=== PATIENT | female | born 1990 | race Caucasian/White ===

== ENCOUNTER 2022-05-02 13:44 | Outpatient (CLI) | payer OTHER, SELFPAY ==
--- NOTE | 2022-05-02 14:00 | CRLHL7_ITS ---
For Patients: As a result of the Century Cures Act, medical imaging exams and procedure reports are released immediately into your electronic medical record. You may view this report before your referring provider. If you have questions, please contact your health care provider. CLINICAL HISTORY: FOLLOW UP RIGHT OVARIAN COMPLEX CYST Comparison: 03/23/2022 TECHNIQUE: 2D avalos scale and color Doppler images were acquired of the pelvis using a transvaginal approach. FINDINGS: On transvaginal imaging, the myometrium has a heterogeneous echotexture. The uterus measures 8.2 x 4.0 x 4.3 cm. The endometrial lining appears normal and measures 6 mm in thickness. The left ovary measures 3.6 x 1.8 x 1.5 cm in size and the right ovary measures 3.2 x 1.6 x 2.1 cm. The ovaries demonstrate normal arterial and venous blood flow on color Doppler analysis. There are no suspicious fluid collections within the cul-de-sac. Interval resolution of previously noted right ovarian cyst. IMPRESSION: Resolution of previously noted right ovarian cyst. Dictated by Ken Rojo MD @ 05/02/2022 2:44:26 PM (Electronically Signed)
== END 2022-05-02 13:45 | disposition home or self-care (01) ==
LOC: US 13:45
PROVIDERS: PCP Physician Assistant; Visit Provider Physician Assistant
DX: N83.201 Unspecified ovarian cyst, right side (principal)
CPT/HCPCS: 76830

== ENCOUNTER 2023-08-02 09:46 | Emergency (ER) | payer OTHER, SELFPAY ==
[2023-08-02 09:56] VITALS: BP 119/71; PULSE 64; RESP 18; TEMP 36.4; O2SAT 98; BMI 24.6
--- NOTE | 2023-08-02 11:19 | ED_ITS ---
HPI - Head Injury General Chief complaint: Head Injury/Pain Stated complaint: Hit head yesterday, nauseous, dizzy Time Seen by Provider: 08/02/23 09:58 History of Present Illness HPI Narrative: This 33-year-old female comes in reporting head injury that occurred yesterday. She was caring a Tote box and somehow bumped her head on the right side of her head. She states that she did not have loss of consciousness but was very briefly dazed. Since then she has had some nausea but did not vomit. She does not report any neurologic deficits. She does have a headache but it is not severe. She does note that light seems to bother her eyes. She did go to work this morning and was able to function but comes in today because she called the clinic and was told to come here for evaluation. Related Data Home Medications Medication Instructions Recorded Confirmed albuterol sulfate 90 mcg/actuation 2 puff inhalation Q4-6H PRN 06/14/22 aerosol inhaler (Ventolin HFA) levothyroxine 75 mcg tablet 75 mcg PO QDAY 06/14/22 Previous Rx's Medication Instructions Recorded citalopram 40 mg tablet 40 mg PO QDAY #90 tabs 06/02/22 etonogestrel 0.12 mg-ethinyl 1 vag ring vaginal Q4W #3 ea 06/08/22 estradiol 0.015 mg/24 hr vaginal ring (EluRyng) levothyroxine 75 mcg tablet 75 mcg PO QDAY #90 tabs 06/14/22 citalopram 40 mg tablet 40 mg PO DAILY #30 tabs 08/02/23 ketorolac 10 mg tablet 10 mg PO Q8H 5 days #15 tabs 08/02/23 ondansetron 4 mg disintegrating 4 mg PO Q6H #10 tabs 08/02/23 tablet Allergies Allergy/AdvReac Type Severity Reaction Status Date / Time avocado Allergy Verified 08/02/23 09:55 banana AdvReac Intermediate Verified 06/14/22 10:26 Egg Derived AdvReac Mild Verified 06/14/22 10:26 raspberry AdvReac Mild Verified 06/14/22 10:26 Review of Systems Status of ROS: Reports: 10 or more systems reviewed and unremarkable except as noted in History and below Narrative: Constitutional: No fevers, no weight gain or loss. Eyes: No discharge. No vision changes. HENT: No congestion, no sore throat, no ear pain. Cardiovascular: No chest pain, no palpitations. Respiratory: No shortness of breath, no wheezes, no cough. Gastrointestinal: No abdominal pain, no vomiting, no diarrhea. She has had some nausea. Genitourinary: No dysuria, no hematuria. Musculoskeletal: Normal range of motion. Skin: No rashes, no pruritis. Neurological: No dizziness, weakness, sensory change, speech change. Endo/Heme/Allergies: No bruising or bleeding. No polydipsia. Pysch: no suicidality, no anxiety, no insomnia. All other systems reviewed and are negative. [facility] Surgical History (Updated 06/14/22 @ 10:28 by Natalie Fowler) Hx of tubal ligation ?Z98.51 - Tubal ligation status (ICD-10) Hx of section ?Z98.891 - History of uterine scar from previous surgery (ICD-10) Social History Smoking Status: Current some day smoker Do you use any of these nicotine containing products: E-Cigarettes Second hand tobacco smoke exposure: No How often do you have a drink containing alcohol: 2-4 times a month How many standard drinks containing alcohol do you have on a typical day: 1 or 2 How often do you have six or more drinks on one occasion: Never AUDIT-C Alcohol total score: 2 Non-prescribed substance use: marijuana (any form) service: No Exam Narrative: Exam Narrative: Constitutional: Well-developed, well-nourished, no acute distress. HEENT: Normocephalic, atraumatic. No sign of scalp injury or hematoma. Neck: Normal range of motion. Nontender. Supple. Heart: Regular. No murmurs. Normal rate. Intact distal pulses. Lungs: Clear to auscultation. No chest discomfort. No wheezes, rhonchi, or rales. Abdomen: Normal bowel sounds. Nontender. No rebound tenderness. Genitalia: Deferred. Back: No midline tenderness. Normal range of motion. Extremities: Normal range of motion. No injury. Skin: Intact. No rash. Warm. No erythema or pallor. Neurologic: No altered sensation. No weakness. Alert and oriented. Psychiatric: No suicidality. No anxiety or depression. No insomnia. Nursing notes and vitals signs are reviewed. Const: Vital Signs, click to edit/add: Vital Signs - 24 hr 08/02/23 09:56 Temperature 97.6 F Pulse Rate [Pulse Oximeter] 64 Respiratory Rate 18 Blood Pressure [Le ft Upper Arm] 119/71 Pulse Oximetry 98 Oxygen Delivery Me thod Room Air Course Vital Signs Vital signs: Initial Vital Signs Temperature 97.6 F 08/02/23 09:56 Temperature Source Temporal Artery Scan 08/02/23 09:56 Pulse Rate 64 08/02/23 09:56 Pulse Rhythm Regular 08/02/23 09:56 Respiratory Rate 18 08/02/23 09:56 Blood Pressure 119/71 08/02/23 09:56 Blood Pressure Mean 87 08/02/23 09:56 Blood Pressure Position Supine 08/02/23 09:56 Pulse Oximetry 98 08/02/23 09:56 Oxygen Delivery Method Room Air 08/02/23 09:56 Vital Signs Temperature 97.6 F 08/02/23 09:56 Pulse Rate 64 08/02/23 09:56 Respiratory Rate 18 08/02/23 09:56 Blood Pressure 119/71 08/02/23 09:56 Pulse Oximetry 98 08/02/23 09:56 Oxygen Delivery Method Room Air 08/02/23 09:56 Temperature 97.6 F 08/02/23 09:56 Pulse Rate 64 08/02/23 09:56 Respiratory Rate 18 08/02/23 09:56 Blood Pressure 119/71 08/02/23 09:56 Pulse Oximetry 98 08/02/23 09:56 Oxygen Delivery Method Room Air 08/02/23 09:56 MDM - Head Injury MDM Narrative Medical decision making narrative: This patient bumped her head yesterday and was dazed briefly but did not have loss of consciousness. She is displaying signs and symptoms that are more typical of a concussion however. I did review nexus rules and discuss the role of CT imaging which the patient declined in a process of shared decision making. I discussed matters related to concussion injury and recommendations for return to activity. The patient did receive a return to work note and prescriptions for Zofran and Toradol. Discharge Plan Discharge Clinical Impression: Concussion without loss of consciousness Patient Disposition: Home, Self-Care Condition: Stable Additional Instructions: Take medication as needed and directed. Increase activity as tolerated. Follow up with MD return if worsening. Prescriptions: New ketorolac 10 mg tablet 10 mg PO Q8H 5 Days Qty: 15 0RF ondansetron 4 mg tablet,disintegrating 4 mg PO Q6H Qty: 10 0RF citalopram 40 mg tablet 40 mg PO DAILY Qty: 30 2RF No Action citalopram 40 mg tablet 40 mg PO QDAY Qty: 90 0RF etonogestrel-ethinyl estradiol [EluRyng] 0.12-0.015 mg/24 hr ring 1 vag ring vaginal Q4W Qty: 3 3RF Rx Instructions: leave in place for 3 weeks of a 4-week cycle levothyroxine 75 mcg tablet 75 mcg PO QDAY albuterol sulfate [Ventolin HFA] 90 mcg/actuation HFA aerosol inhaler 2 puff inhalation Q4-6H PRN levothyroxine 75 mcg tablet 75 mcg PO QDAY Qty: 90 3RF Follow Up/Referrals: Rosa Kearns PA-C [Primary Care Provider] - Stand Alone Forms: [facility] Info Instructions
== END 2023-08-02 11:33 | disposition home or self-care (01) ==
PROVIDERS: Emergency Provider Emergency Medicine Emergency Medical Services; PCP Physician Assistant
DX: S06.0X0A Concussion without loss of consciousness, initial encounter (principal); W22.8XXA Striking against or struck by other objects, initial encounter
CPT/HCPCS: 99284

== ENCOUNTER 2023-12-24 10:21 | Outpatient (CLI) | payer OTHER, SELFPAY ==
--- NOTE | 2023-12-24 10:45 | US_ITS ---
Patient: YARELI MANDEL Facility:?[facility] Patient ID:?[id number] Site Patient ID:?[id number] Site :?1992 Study:?US-Pelvis TRANSABDOMINAL AND TRANSVAGINAL-12/24/2023 1:58:41 PM Ordering Physician:?LOIDA RUST Final Report: INDICATION: Dyspareunia, endometriosis. Pelvic pain. TECHNIQUE: Transabdominal and transvaginal ultrasound examination of the pelvis was performed. Grayscale and color Doppler images were obtained. COMPARISON: Transvaginal pelvic ultrasound 05/02/2022. FINDINGS: Uterus: Measures 8.3 x 4.0 x 4.8 cm. Normal in echotexture. No suspicious masses. section scar along the lower anterior uterine body. Endometrium: 3 mm. No significant endometrial free fluid. Right Ovary: Measures 3.5 x 2.1 x 2.8 cm. No suspicious masses. Normal arterial and venous flow on color Doppler imaging. Left ovary: Measures 3.9 x 2.3 x 2.0 cm. No suspicious masses. Normal arterial and venous flow on color Doppler imaging. Cul-de-sac: No free fluid. Other: There are prominent paraadnexal/paraovarian vasculature bilaterally. IMPRESSION: Findings raise the possibility of pelvic congestion syndrome. This could be confirmed with a time-resolved MRA/MRV of the pelvis. Follow-up consultation with interventional radiology is advised. Dictated by Tyrell Yoder MD @ 01/03/2024 2:25:23 PM Signed by:?Tyrell Yoder MD @01/03/2024 2:25:23 PM (Electronic Signature)
== END 2023-12-24 10:22 | disposition home or self-care (01) ==
PROVIDERS: Visit Provider Obstetrics & Gynecology
DX: N94.6 Dysmenorrhea, unspecified (principal); R10.2 Pelvic and perineal pain
CPT/HCPCS: 76830; 76856

== ENCOUNTER 2024-01-02 15:03 | Outpatient (CLI) | payer OTHER, SELFPAY | END 2024-01-02 15:04 | disposition home or self-care (01) | LOC: NFLDREF 01-07 09:17 | PROVIDERS: Visit Provider Nurse Practitioner Family | DX: R30.0 Dysuria (principal) | CPT/HCPCS: 87086 ==

== ENCOUNTER 2024-01-18 14:27 | Outpatient (CLI) | payer OTHER, SELFPAY ==
--- NOTE | 2024-01-18 14:30 | MR_ITS ---
Patient: YARELI MANDEL Facility:?[facility] Patient ID:?[id number] Site Patient ID:?[id number]. Site :?[id number] Study:?MRI-Pelvis W/ and W/O Cont 20 CC DOATERM-01/18/2024 4:48:42 PM Ordering Physician:?LOIDA RUST Final Report: INDICATION: Pelvic pain. Prominent periuterine vessels. TECHNIQUE: Pelvic MRI with T1 in- and out of phase, T2, and postcontrast images. Intravenous gadolinium administered. Comparison : Pelvic ultrasound dated 24 December 2023. Findings : Probable scar in the anterior aspect of the lower uterine segment. The uterus is otherwise unremarkable. Normal appearance of the ovaries which contain scattered follicles. No pelvic masses. No adenopathy. Mildly prominent periuterine vessels. No other bony or soft tissue abnormalities identified. Impression : 1. Mildly prominent periuterine vessels are a nonspecific finding. 2. No pelvic masses or adenopathy. Dictated by Sandro Parsons MD @ 01/20/2024 11:17:51 AM Signed by:?Sandro Parsons MD @01/20/2024 11:17:51 AM (Electronic Signature)
--- OUTSIDE RECORDS SUMMARY | 2024-01-18 14:30 | XMS_ITS | Encounter Summary ---
Author Name Unknown Organization [facility] Address [address] [place] [address] Phone [email or web address] Care Team Providers Care Estimating Engineer Name Role Phone NormanoliverJanuary Primary Care Provider [phone] Reason for Visit * Reason Comments Urinary Issue Female / Vaginal Issue Encounter Details Date Type Department Care Team (Late st Contact Info) Description 12/29/2023 11:45 AM CDT Telemedicine Virtual [facility] ([facility]) [address] [place] [address] Elayne Carnes MD [address] [address] Dysuria (Primary Dx); Vaginal pruritus Social History Tobacco Use Types Packs/Day Years Used Date Smoking Tobacco: Every Day E-Cigarettes Alcohol Use Standard Drinks/Week Comments Not Currently 0 (1 standard drink = 0.6 oz pur e alcohol) Alcohol Use Answer Date Recorded Alcohol Use Status Not Currently 11/10/2023 Sex and Gender Information Value Date Recorded Sex Assigned at Female 11/10/2023 3:12 AM SENIOR COMPLIANCE ANALYST Gender Identity Female 11/10/2023 3:12 AM SENIOR COMPLIANCE ANALYST Sexual Orientation Not on file documented as of this encounter Patient Instructions * Patient Instructions* Elayne Carnes MD - 12/29/2023 11:45 AM CDT Images from the original note were not included. I hope you feel better soon! Please do not take the antibiotic unless you have positive results for nitrites on an over the counter urine test (not just leukocytes). These tests are found in the pharmacy aisle... one company is [employer], but please follow package instructions. Here is an example of the insert for the Azo test strips (the one you purchase may be different): IF you do start the antibiotic, ensure you take all days of antibiotics, even if better in 2-3 daysto minimize risk of resistant bacteria in your own body. Consider starting a probiotic or eating yogurt, and/or using over the counter vaginal monistat, if you are prone to vaginal yeast infections when on Antibiotics. Ensure condom use as backup while on antibiotics, if sexually active w/men as antibiotics can decrease efficacy of oral contraceptives. Please try to be seen in person otherwise for a full urine evaluation and genital exam. Would stop VAgisil, may use Monistat for yeast, or Vaseline or barrier cream only on outer labia. May try Azo/Pyridium, over the counter, as well for urinary discomfort, but note it will change your urine to orange, do not take within 8 hours prior to a urine check/test. Please Call 911 or Go to the ER :If having fever w/abdominal pain pavithra w/vomiting, or green or bloody vomit, bloody stools or urine, or if cannot urinate in 8 hours, if having shortness of breath, chest pain, acute weakness or loss of strength or sensation and numbness, acute loss of vision, severe h eadache or other severe symptoms. documented in this encounter Progress Notes * Elayne Carnes MD - 12/29/2023 11:45 AM CDT Virtual Primary Care Note Member states they are currently in the [facility] Member states they are an employee of [employer] without access to a [facility]. Proximate Lab Location: [facility] Is the member interested in learning about Virtual Primary Care? No Subjective: Raza Tirado is a 33 y.o. female requesting a virtual encounter. Chief Complaint: Chief Complaint Patient presents with Urinary Issue Female / Vaginal Issue History Reviewed: The following portions of the member's chart were reviewed during this encounter and updated as appropriate: Allergies Meds Problems Raza Tirado is a 33 y.o. female presents for a phone visit for burning when urinates and vaginal itching as well and redness. She reports started 2-3 days ago. Tried to use Azo and helped slightly but not fully. Tried Vagisil evening. Helped the itching but burned when applying. Itching and redness started and burning w/urination started Sunday. No F/C/N/V. No vaginal discharge. Menses are slightly irregular, notes just started control 10 days ago. Plans to use q3 mo continuously . Previously on Nuvaring but tilted uterus so had trouble in the past. No condom use in the interim (reports baseline dyspareunia so not sexually active w/regular partner, ) No recent antibiotics/steroids. No urinary frequency or urgency now, but 2 days ago had this. Female Problem The patient's primary symptoms include genital itching and a genital rash. The patient's pertinent negatives include no genital lesions, genital odor, missed menses, pelvic pain, vaginal bleeding or vaginal discharge. This is a new problem. The current episode started in the past 7 days. The problem occurs intermittently. The problem has been gradually worsening. The pain is moderate. The problemaffects both sides. She is not . Associated symptoms include frequency, headaches, painful intercourse and urgency. Pertinent negatives include no abdominal pain, anorexia, back pain, chills,constipation, diarrhea, discolored urine, dysuria, fever, flank pain, hematuria, joint pain, joint s welling, nausea, rash, sore throat or vomiting. The symptoms are aggravated by activity. She is sexually active. No, her partner does not have an STD. She uses oral contraceptives for contraception. Her menstrual history has been irregular. Urinary Issue Associated symptoms include frequency and urgency. Pertinent negatives include no chills, flank pain, hematuria, nausea or vomiting. Female / Vaginal Issue The patient's primary symptoms include genital itching and a genital rash. The patient's pertinent negatives include no genital lesions, genital odor, missed menses, pelvic pain, vaginal bleeding or vaginal discharge. Associated symptoms include frequency, headaches, painful intercourse and urgency. Pertinent negatives include no abdominal pain, anorexia, back pain, chills, constipation, diarrhea, discolored urine, dysuria, fever, flank pain, hematuria, joint pain, joint swelling, nausea, rash,sore throat or vomiting. Review of Systems Constitutional: Negative for chills, diaphoresis, fatigue and fever. HENT: Negative for sore throat. Gastrointestinal: Negative for abdominal pain, anorexia, constipation, diarrhea, nausea and vomiting. Musculoskeletal: Negative for back pain, joint pain, myalgias, neck pain and neck stiffness. Skin: Negative for rash. Neurological: Positive for headaches. Genitourinary: Positive for dyspareunia, frequency, menstrual problem and urgency. Negative for dysuria, flank pain, hematuria, missed menses, pelvic pain, vaginal bleeding, vaginal discharge and vaginal pain. Objective: With the provider's guidance during this telephonic visit, the member's self- examination (includingany reported vital signs) revealed the following: Visit Vitals Smoking Status Every Day Physical Exam Constitutional: General: She is not in acute distress. Pulmonary: Effort: Pulmonary effort is normal. No respiratory distress. Breath sounds: No stridor. Comments: Normal phonation; no audible distress. Neurological: Mental Status: She is alert and oriented to person, place, and time. Cranial Nerves: No dysarthria. Psychiatric: Mood and Affect: Mood normal. Behavior: Behavior normal. Behavior is cooperative. Thought Content: Thought content normal. Judgment: Judgment normal. Assessment/Plan: Diagnoses and all orders for this visit: Dysuria Comments: Dysuria starting after vaginal itching and vagisil use;frequency/urgency resolved w/Azo. OTC UA test.WAit/see abx. f/u in person if worse Orders: - nitrofurantoin, macrocrystal-monohydrate, (Macrobid) 100 MG capsule; Take 1 capsule (100 mg total) by mouth in the morning and 1 capsule (100 mg total) in the evening. Do all this for 5 days. Vaginal pruritus Comments: To stop Vagisil,may try vaseline/barrier cream and/or Monistat. F/u in person for exam if continues. ER & return precautions reviewed at length and reviewed after visit summary access and advised to review after our visit. Time Spent With Patient: 15 min evaluation, counseling, education, documentation, and coordination of care. Elayne Carnes MD documented in this encounter Plan of Treatment Not on file documented as of this encounter Visit Diagnoses Diagnosis Dysuria- Primary Vaginal pruritus Pruritus of genital organs documented in this encounter Care Teams Estimating Engineer Relationship Specialty Start Date End Date NormanJanuary [address] [place] [address] PCP - General Family Medicine 11/29/23 documented as of this encounter
--- OUTSIDE RECORDS SUMMARY | 2024-01-18 14:30 | XMS_ITS | Clinical Summary ---
Author Name Unknown Organization [facility] Address [address] [place] [id number] Care Team Providers Care Management Lead Name Role Phone [facility], [facility] Primary Care Provide r Allergies No known active allergies Medications Medication Sig Dispensed Refills Start Date End Date Status NASONEX 50 MCG/ACT NA SUSP INHALE 2 SPRAYS IN EACH NOSTRIL ONE DAILY 3 MONTHS 3 03/20/2009 Active RECLIPSEN 0.15-30 MG-MCG OR TABS 1 TABLET DAILY 28 0 03/20/2009 Active PROAIR HFA 108 (90 BASE) MCG/ACT IN AERS INHALE 1 TO 2 PUFFS EVERY 4 TO 6 HOURS NEEDED 1 1 03/20/2009 Active oxyCODONE IR (ROXICODONE) 5 MG tablet Take 1-2 tablets (5-10 mg) by mouth every 6 hours as needed for moderate to severe pain 12 tablet 0 01/18/2018 Active Social History Tobacco Use Types Packs/Day Years Used Date Smoking Tobacco: Never Assessed Sex and Gender Information Value Date Recorded Sex Assigned at Not on file Gender Identity Not on file Sexual Orientation Not on file Last Filed Vital Signs Vital Sign Reading Time Taken Comments Blood Pressure 102/60 01/18/2018 1:00 PM CDT Pulse 66 01/18/2018 9:26 AM CDT Temperature 36.2 ??C (97.1 ??F) 01/18/2018 9:26 AM CD T Respiratory Rate 18 01/18/2018 9:26 AM CDT Oxygen Saturation 99% 01/18/2018 1:00 PM CDT Inhaled Oxygen Concentration - - Weight 61.2 kg (135 lb) 01/18/2018 9:26 AM CDT Height 154.9 cm (5' 1) 01/18/2018 9:26 AM CDT Body Mass Index 25.51 01/18/2018 9:26 AM CDT Plan of Treatment Not on file Care Teams Management Lead Relationship Specialty Start Date End Date [facility], [facility] [address] [place] [address] JANELLE Horton [id number] PCP - General 03/14/23
--- OUTSIDE RECORDS SUMMARY | 2024-01-18 14:30 | XMS_ITS | Referral Summary ---
Author Name Unknown Organization [facility] Address [address] [place] [id number] Care Team Providers Care Benefits Administrator Name Role Phone Clinic, [facility] Primary [...] of Treatment Not on file Care Teams Benefits Administrator Relationship Specialty Start Date End Date Clinic, [facility] [address] [place] [address] JANELLE Horton [id number] PCP - General 03/14/23
--- OUTSIDE RECORDS SUMMARY | 2024-01-18 14:30 | XMS_ITS | Encounter Summary ---
Author Name Unknown Organization [facility] Address [address] [place] [address] Phone [email or web address] Care Team Providers Care Money Laundering Investigator Name Role Phone Unavailable Primary Care Provider Unavailabl e Reason for Visit * Reason Comments GI Issue Vomiting stopped now diarrhea Encounter Details Date Type Department Care Team (Late st Contact Info) Description 11/10/2023 3:30 AM FRAME TABLE OPERATOR HELPER Telemedicine [facility] ([facility]) [address] [place] [address] Ismael Herrmann MD [address] [address] Gastroenteritis (Primary Dx) Social History Tobacco Use Types Packs/Day Years Used Date Smoking Tobacco: Every Day E-Cigarettes Tobacco Cessation:Ready to Q uit: Not Asked; Counseling Given: Not Answered Alcohol Use Standard Drinks/Week Comments Not Currently 0 (1 standard drink = 0.6 oz pur e alcohol) Alcohol Use Answer Date Recorded Alcohol Use Status Not Currently 11/10/2023 Sex and Gender Information Value Date Recorded Sex Assigned at Female 11/10/2023 3:12 AM FRAME TABLE OPERATOR HELPER Gender Identity Female 11/10/2023 3:12 AM FRAME TABLE OPERATOR HELPER Sexual Orientation Not on file documented as of this encounter Last Filed Vital Signs Vital Sign Reading Time Taken Comments Blood Pressure - - Pulse - - Temperature - - Respiratory Rate - - Oxygen Saturation - - Inhaled Oxygen Concentration - - Weight 56.7 kg (125 lb) 11/10/2023 4:30 AM FRAME TABLE OPERATOR HELPER Height 154.9 cm (5' 1) 11/10/2023 4:30 AM FRAME TABLE OPERATOR HELPER Body Mass Index 23.62 11/10/2023 4:30 AM FRAME TABLE OPERATOR HELPER documented in this encounter Patient Instructions * Patient Instructions* Ismael Herrmann MD - 11/10/2023 3:30 AM FRAME TABLE OPERATOR HELPER Push fluids, slowly add food including soup broth, crackers, pedialyte, follow up with pcp in next week. E TABLE OPERATOR HELPER * Attachments The following attachments cannot be sent through Care Everywhere. * Diarrhea (Malian) documented in this encounter Progress Notes * Ismael Herrmann MD - 11/10/2023 3:30 AM CST Virtual Primary Care Note Member states they are currently in the [facility] Member states they are an employee of [employer] without access to a [facility] [place]. Proximate Lab Location: Refer to local provider Is the member interested in learning about Virtual Primary Care? No Subjective: Raza Tirado is a 33 y.o. female requesting a virtual encounter. Chief Complaint: Chief Complaint Patient presents with GI Issue Vomiting stopped now diarrhea History Reviewed: The following portions of the member's chart were reviewed during this encounter and updated as appropriate: Allergies Meds Member starting last Sunday am woke up at 2 am vomiting x 2 days, was feeling better on Sunday and then Sunday woke up again vomiting again for 3-4 days was doing better with some nausea and woke up with diarrhea on director of automation, loose now mostly watery, going approx 15 x a day. No recent travel, was exposed with someone who had similar but did not last this long. No fever or chills.Feels weak, has been taking immodium which seems to help only slightly. Has mostly had gingerale, water and tea. Has not waking her up in middle of night to go. Going less now than a couple days prior. Has not noticed any blood. REASON FOR VISIT - OTHER Associated symptoms include fatigue. Pertinent negatives include no abdominal pain, chills, fever, headaches, nausea or vomiting. Review of Systems Constitutional: Positive for fatigue. Negative for chills and fever. Gastrointestinal: Positive for diarrhea. Negative for abdominal distention, abdominal pain, blood in stool, melena, nausea and vomiting. Neurological: Negative for headaches. Objective: With the provider's guidance during this telephonic visit, the member's self- examination (includingany reported vital signs) revealed the following: Visit Vitals Ht 5' 1 Wt 125 lb BMI 23.62 kg/m?? Smoking Status Every Day BSA 1.56 m?? Physical Exam Constitutional: Appearance: Normal appearance. She is normal weight. Cardiovascular: Rate and Rhythm: Normal rate. Pulmonary: Effort: Pulmonary effort is normal. Abdominal: General: Abdomen is flat. There is no distension. Palpations: Abdomen is soft. Tenderness: There is no abdominal tenderness. Neurological: General: No focal deficit present. Mental Status: She is alert and oriented to person, place, and time. Mental status is at baseline. Psychiatric: Mood and Affect: Mood normal. Behavior: Behavior normal. Thought Content: Thought content normal. Judgment: Judgment normal. Assessment/Plan: Diagnoses and all orders for this visit: Gastroenteritis Push fluids, slowly add food including soup broth, crackers, pedialyte, follow up with pcp in next week. Ismael Herrmann MD Answers submitted by the patient for this visit: Other (Submitted on 11/10/2023) Chief Complaint: REASON FOR VISIT - OTHER Please describe your symptoms.: Puked for 3-4 days, now on dsy 3 of diarrhea. Havent eaten a ton, been takinf anti-diarrheal start day two today Have you had these symptoms before?: Yes How long have you been having these symptoms?: 4-6 days Please list any medications you are currently taking for this condition.: Anti-diarrheal E TABLE OPERATOR HELPER documented in this encounter Plan of Treatment Not on file documented as of this encounter Visit Diagnoses Diagnosis Gastroenteritis- Primary Other and unspecified noninfectious gastroenteritis and colitis documented in this encounter
--- OUTSIDE RECORDS SUMMARY | 2024-01-18 14:30 | XMS_ITS | Encounter Summary ---
Author Name Unknown Organization [facility] Address [address] [place] [address] Phone [email or web address] Care Team Providers Care Director Of Customer Service Name Role Phone Unavailable Primary Care Provider Unavailabl e Encounter Details Date Type Department Care Team (Late st Contact Info) Description 11/12/2023 Telephone [facility] ([facility]) [address] [place] [address] Tessa Weaver MA [address] [place] [address] Social History Tobacco Use Types Packs/Day Years Used Date Smoking Tobacco: Every Day E-Cigarettes Alcohol Use Standard Drinks/Week Comments Not Currently 0 (1 standard drink = 0.6 oz pur e alcohol) Alcohol Use Answer Date Recorded Alcohol Use Status Not Currently 11/10/2023 Sex and Gender Information Value Date Recorded Sex Assigned at Female 11/10/2023 3:12 AM BUTTON DECORATING MACHINE OPERATOR Gender Identity Female 11/10/2023 3:12 AM BUTTON DECORATING MACHINE OPERATOR Sexual Orientation Not on file documented as of this encounter Miscellaneous Notes * Telephone Encounter - Tessa Weaver MA - 11/12/2023 3:11 PM BUTTON DECORATING MACHINE OPERATOR Pt sched appt on 11/15 for Talk about maintaining my adhd and mental health Called pt to inform it's not in scope of practice for C providers. Pt understood. She also needs a refill of citalopram that she has been taking for 14 years. Told pt to use Get [facility] Now and discuss w/provider. She understood. ON DECORATING MACHINE OPERATOR documented in this encounter Plan of Treatment Not on file documented as of this encounter Visit Diagnoses Not on filedocumented in this encounter
--- OUTSIDE RECORDS SUMMARY | 2024-01-18 14:30 | XMS_ITS | Encounter Summary ---
Author Name Unknown Organization [facility] Address [address] [place] [address] Phone [email or web address] Care Team Providers Care Medical Transcription Name Role Phone Urmila January Primary Care Provider [phone] Reason for Visit * Reason Comments GI Issue DIARRHEA Encounter Details Date Type Department Care Team (Late st Contact Info) Description 11/29/2023 12:45 PM EXHAUST EMISSIONS AUTOMOTIVE TECHNICIAN Telemedicine [facility] ([facility]) [facility] [place] [address] Doc Hampton MD Diarrhea, unspecified type (Primary Dx) Social History Tobacco Use Types Packs/Day Years Used Date Smoking Tobacco: Every Day E-Cigarettes Alcohol Use Standard Drinks/Week Comments Not Currently 0 (1 standard drink = 0.6 oz pur e alcohol) Alcohol Use Answer Date Recorded Alcohol Use Status Not Currently 11/10/2023 Sex and Gender Information Value Date Recorded Sex Assigned at Female 11/10/2023 3:12 AM EXHAUST EMISSIONS AUTOMOTIVE TECHNICIAN Gender Identity Female 11/10/2023 3:12 AM EXHAUST EMISSIONS AUTOMOTIVE TECHNICIAN Sexual Orientation Not on file documented as of this encounter Patient Instructions * Patient Instructions* Doc Hampton MD - 11/29/2023 12:45 PM EXHAUST EMISSIONS AUTOMOTIVE TECHNICIAN Diarrhea, unspecified type Rest Fluid. Avoid milk and milk products Continue with Imodium as directed on the label. Increase the fiber in your diet. Go to an urgent care or the ER if you have increased pain, fever, melenotic stool or blood in the stools. Recheck in 1-2 if no better UST EMISSIONS AUTOMOTIVE TECHNICIAN * Attachments The following attachments cannot be sent through Care Everywhere. * Diarrhea (Korean) documented in this encounter Progress Notes * Doc Hampton MD - 11/29/2023 12:45 PM CST Virtual Primary Care Note Member states they are currently in the [facility] Member states they are an employee of [employer] without access to a [facility]. [facility] Is the member interested in learning about Virtual Primary Care? No Subjective: Raza Tirado is a 33 y.o. female requesting a virtual encounter. Chief Complaint: Chief Complaint Patient presents with GI Issue DIARRHEA History Reviewed: The following portions of the member's chart were reviewed during this encounter and updated as appropriate: Allergies Meds Problems Identity and location verified. She c/o diarrhea. This is the third episode in the last several month She started imodium AD. It has slowed iit down some butshe stillhas crampoin GI Issue The primary symptoms include abdominal pain (sore.), diarrhea (watery) and dysuria. Primary symptoms do not include fever, nausea, vomiting or melena. The illness began 2 days ago. The onset was gradual. The abdominal pain began 2 days ago. The abdominal pain has been gradually worsening since its onset. The abdominal pain is located in the periumbilical region. The abdominal pain radiates to the suprapubic region and periumbilical region. The severity of the abdominal pain is 3/10. The illness is also significant for anorexia. The illness does not include chills. Associated medical issues do not include inflammatory bowel disease, GERD, gallstones, liver disease, alcohol abuse,gastric bypass, bowel resection, irritable bowel syndrome or diverticulitis. Review of Systems Constitutional: Negative for chills and fever. Gastrointestinal: Positive for abdominal pain (sore.), anorexia and diarrhea (watery). Negative forabdominal distention, melena, nausea and vomiting. Genitourinary: Positive for dysuria. Objective: With the provider's guidance during this telephonic visit, the member's self- examination (includingany reported vital signs) revealed the following: Visit Vitals Smoking Status Every Day Physical Exam Constitutional: Comments: She sounds like she does not feel well. Neurological: Mental Status: She is alert. Psychiatric: Mood and Affect: Mood normal. Behavior: Behavior normal. Thought Content: Thought content normal. Judgment: Judgment normal. Assessment/Plan: Diagnoses and all orders for this visit: Diarrhea, unspecified type Rest Fluid. Avoid milk and milk products Continue with Imodium as directed on the label. Increase the fiber in your diet. Go to an urgent care or the ER if you have increased pain, fever, melenotic stool or blood in the stools. Recheck in 1-2 if no better Time spent: 11 Minutes spent with patients in clinical assessment and patients education Doc Hampton MD UST EMISSIONS AUTOMOTIVE TECHNICIAN documented in this encounter Plan of Treatment Not on file documented as of this encounter Visit Diagnoses Diagnosis Diarrhea, unspecified type- Primary documented in this encounter Care Teams Medical Transcription Relationship Specialty Start Date End Date NormanJanuary [address] [place] [address] PCP - General Family Medicine 11/29/23 documented as of this encounter
--- OUTSIDE RECORDS SUMMARY | 2024-01-18 14:30 | XMS_ITS | Clinical Summary ---
Author Name Unknown [facility] Address [address] [place] [address] Care Team Providers Care Substance Abuse Therapist Name Role Phone Giuseppe Larson PA-C Primary Care Provider [phone] Source Comments You are receiving this document as you are listed as the primary care provider,follow-up provider, or the patient has been referred to you for consultation.This is in compliance with the Medicare andMedicaid EHR Incentive Program,which states Providers who transition their patient to another setting of careor provider of care or refers their patient to another provider of care shouldprovide summary care record for each transition of care or referral. [employer] Allergies Active Allergy Reactions Criticality Noted Date Comments Avocado 08/23/2015 PN: eggs and bananas-abd cramping Banana 10/14/2015 Raspberry Gastrointestinal 06/15/2016 Medications Medication Sig Dispensed Refills Start Date End Date Status citalopram (CELEXA) 40 MG tabletIndications:De pression, major, recurrent, mild (HRC),RICHARD (generalized anxiety disorder) (HRC) Take 1 Tab by mouth daily. 90 Tab 3 08/09/2016 Active Additional Information Patient taking differently: (No dose reported), Oral DAILY, Reported on 09/16/2022 etonogestrel-ethinyl estradiol (NUVARING) 0.12-0.015 MG/24HR vaginal ring Insert 1 Each vaginally every 4 weeks. 08/30/2022 Active levothyroxine (SYNTHROID) 75 MCG tablet Take 1 Tablet (75 mcg) by mouth daily. 08/30/2022 Active Active Problems Problem Noted Date Diagnosed Date Mild intermittent asthma without complication Seasonal allergic rhinitis 04/09/2015 Overview: spring/fall RICHARD (generalized anxiety disorder) 02/09/2015 Positive ALICIA (antinuclear antibody) 05/14/2013 Abnormal thyroid blood test 05/14/2013 Depression, major, recurrent, mild 06/12/2012 Overview: Depression, major, recurrent, mild (HCC) Last Assessment & Plan: PHQ-9 score of 6, RICHARD-7 score of 2. Denies suicidal ideation/intention/plan. Reports a good social support system. Taking citalopram 40 mg daily, and added bupropion XL 150 mg in January 2014. She has tolerated the medication well, and reports improvement in her depression symptoms since this addition. Still struggling with her weight and her motivation to do anything about it, but doesn't feel as sad, blue, irritable, or despairing. She and her boyfriend have moved in together, and it is going well, which has eased a lot of the stress and worry she was having in anticipation of co-habitation. She would be interested in increasing the bupropion dose at this point. Attention deficit disorder 05/26/2009 Overview: Rubén Irizarryjaniceriana diagnosed 03/2009 Last Assessment & Plan: She stopped her Concerta 54 mg about 3 months ago, because she suspected that it was making her more irritable. She and her boyfriend both feel like she has been less irritable off the Concerta; however, with her increased anxiety and depression, irritability has crept in again. She is definitely less focused and less able to complete tasks when she is off the Concerta, wonders if she should restart it at this point. The only other ADD medication she has ever been on was Adderall XR, and it made her feel awful. She has been on Concerta for a few years now. Other acne 12/11/2007 Overview: Acne Vulgaris Dysmenorrhea 08/15/2007 Irregular menstrual cycle 08/15/2007 Overview: Menstrual Irregularity NOS Immunizations Name Administration Dates Next Due 4vHPV (Gardasil) 02/20/2008,10/24/2007, 7 DTP 05/30/1996, 4,1992, 992,1992 Flu Vac Preserv Free (3+yrs) 09/04/2011, 08/05/2010,06/30/2009, 007 HepA Ped/Adol (1-18 yrs) 08/05/2010,12/09/2008 HepB Ped/Adol (0-18 yrs) 02/23/1993,1992,0 1992 Hib (ActHIB) 08/25/1993, 3,1992, 992 Influenza IIV4 (Quadrivalent ) 0.5mL (14807) 08/11/2019,07/19/2017,08/05/2013 Influenza LAIV (Nasal, 2-49 yrs) 06/12/2012 MCV4 (Menactra) 02/20/2008 MMR 05/30/1996,08/25/1993 OPV, Trivalent (Orimune or tOPV) 996,12/05/1993,1992, 992 TDAP (ADACEL) 09/04/2011 Td 11/09/2003 Tdap 10/01/2020,02/20/2017 Varicella 02/20/2008,06/13/1995 Social History Tobacco Use Types Packs/Day Years Used Date Smoking Tobacco: Former Cigarettes Smokeless Tobacco: Never Comments:Smoking History Pac ks/day: Alcohol Use Standard Drinks/Week Comments No 0 (1 standard drink = 0.6 oz pur e alcohol) Depression Answer Date Recor ded Last EPDS Total Score 14 05/18/2021 Last EPDS Self Harm Result 0-->never 05/18 Sex and Gender Information Value Date Recorded Sex Assigned at Not on file Gender Identity Not on file Sexual Orientation Not on file Last Filed Vital Signs Vital Sign Reading Time Taken Comments Blood Pressure 124/78 09/16/2022 2:52 PM MAINTENANCE GROUNDMAN Pulse 66 09/16/2022 2:52 PM MAINTENANCE GROUNDMAN Temperature 36.9 ??C (98.5 ??F) 09/16/2022 2:52 PM CS T Respiratory Rate 16 09/16/2022 2:52 PM MAINTENANCE GROUNDMAN Oxygen Saturation 100% 09/16/2022 2:52 PM MAINTENANCE GROUNDMAN Inhaled Oxygen Concentration - - Weight 74.8 kg (165 lb) 01/02/2021 12:44 PM CDT Height 154.9 cm (5' 1) 04/26/2020 3:26 PM CDT Body Mass Index 31.18 04/26/2020 3:26 PM CDT Plan of Treatment Health Maintenance Due Date Last Done Comments Asthma ACT 1996 Pneumococcal (1 - PCV) 1998 Adult Preventive Visit 2010 Cervical Cancer Screening Due 04/23/2014 04/22/2014, 01/28/2013, 12/09/2008 COVID-19 Vaccine ( season) 2023 Influenza (#1) 2023 08/11/2019, 02/2017, 08/05/2013, Additional history exists DTaP/Tdap/Td (9 - Tdap) 10/01/2030 10/01/20, 02/20/2017, 09/04/2011, Additional history exists Zoster/Shingles (1 of 2) 2042 HepB Completed 02/23/1993, 06/15, 1992 Hib Completed 08/25/1993, 12/13, 1992, Additional history exists IPV (Polio) Completed 05/30/1996, 11/16, 1992, Additional history exists HPV Vaccine Completed 02/20/2008, 10/15, 08/15/2007 MCV4 Aged Out 02/20/2008 No longer eligi ble based on patient's age to complete this topic HepA Completed 08/05/2010, 12/09/2008 HIV Screening (Preventive Services) Completed 04/22/2014, 05/14/2013 Hep C Screening (Preventive Services) Completed 04/22/2014 Procedures Procedure Name Priority Date/Time Associated Diagnosis Comments ANATOMICAL PATH LIQUID BASED Routine 04/22/2014 10:16 AM CDT HIV ANTIBODY Routine 04/22/2014 10:11 AM CDT Screen for STD (sexually transmitted disease) HEPATITIS C ANTIBODY, WITH REFLEX Routine 04/22/2014 10:11 AM CDT Screen for STD (sexually transmitted disease) from Last 3 Months or Most Recently Relevant to Health Maintenance Results * Pap Smear (04/22/2014 10:16 AM CDT) 04/22/2014 10:1 6 AM CDT Narrative HP CONVERSION - 05/01/2014 1:57 PM CDT FINAL GYNECOLOGICAL CYTOLOGY REPORT Pathology #: [id number] ?Date Obtained: 04/22/2014 ? Date Received: 04/23/2014 INTERPRETATION/RESULTS: Negative for Intraepithelial Lesion or Malignancy. SPECIMEN ADEQUACY: Satisfactory for Evaluation. ??Endocervical cells/transformation zone component present. Verified on 05/01/2014 ??by JENNIFER MARCH(ASCP) (electronic signature) CLINICAL NOTES: ?Abnormal bleeding: No, LMP: 03/25/2014, Hormonal TX: No LIQUID BASED PAP SMEAR SPECIMEN TYPE: ?CERVICAL WITH REFLEX TO HPV IF ASCUS PLEASE NOTE: The pap smear is a screening test designed to aid in the detection of cervical cancer and its precursor lesions. It is not a diagnostic procedure and should not be used as the sole means of detecting cervical cancer. Both false-positive and false-negative reports may occur. ? End of Report Giuseppe Larson PA-C LAB_1 Performing Organization Address City/State/[facility] Co de Phone Number HP CONVERSION * HIV ANTIBODY (04/22/2014 10:11 AM CDT) HIV 1/HIV 2 Non-React Non-Reacti ve HP CONVERSION 04/22/2014 10:1 1 AM CDT 04/22/2014 3:38 PM CDT Giuseppe Larson PA-C LAB_1 Performing Organization Address [facility] Co de Phone Number HP CONVERSION * Hepatitis C Antibody, with Reflex (04/22/2014 10:11 AM CDT) Hepatitis C Antibody Non-React Non-Reacti ve HP CONVERSION 04/22/2014 10:1 1 AM CDT 04/22/2014 3:38 PM CDT Giuseppe Larson PA-C LAB_1 Performing Organization Address [facility] de Phone Number HP CONVERSION from Last 3 Months or Most Recently Relevant to Health Maintenance Care Teams Substance Abuse Therapist Relationship Specialty Start Date End Date Giuseppe Larson PA-C [address] [place] [address] PCP - General 01/16/11
--- OUTSIDE RECORDS SUMMARY | 2024-01-18 14:30 | XMS_ITS | Clinical Summary ---
Author Name Unknown Organization [facility] Address [address] [place] [address] Phone [email or web address] Care Team Providers Care Geospatial Developer Name Role Phone Normanjanuary Primary Care Provider [phone] Allergies Active Allergy Reactions Criticality Noted Date Comments Avocado 08/23/2015 PN: eggs and bananas-abd cramping Banana 10/14/2015 Raspberry GI intolerance 06/15/2016 Medications Medication Sig Dispensed Refills Start Date End Date Status citalopram (CeleXA) 20 MG tablet Take 20 mg by mouth once daily as needed. 0 11/10/2008 Active levothyroxine (SYNTHROID) 75 MCG tablet Take 75 mcg by mouth once daily as needed. 0 08/30/2022 Active Drospiren-Eth Estrad-Levomefol 3-0.02-0.451 MG tablet 1 TAB ORALLY EVERY DAY; USING CONTINUOUSLY TO TREAT DYSMENORRHEA. 0 12/05/2023 Active nitrofurantoin, macrocrystal-mono hydrate, (Macrobid) 100 MG capsuleIndication s:Dysuria Take 1 capsule (100 mg total) by mouth in the morning and 1 capsule (100 mg total) in the evening. Do all this for 5 days. 10 capsule 0 12/29/2023 01/03/2024 Active Problems Problem Noted Date Diagnosed Date History of section 04/01/2019 Anxiety 05/10/2017 Depression 05/10/2017 RICHARD (generalized anxiety disorder) 02/09/2015 Abnormal thyroid blood test 05/14/2013 Depression, major, [...] point. Attention deficit disorder 05/26/2009 Overview: Rubén Duke diagnosed 03/2009 Last Assessment & Plan: She [...] on Concerta for a few years now. Dysmenorrhea 08/15/2007 Encounters Date Type Department Care Team Description 12/29/2023 11:45 AM CDT [facility] ([facility]) [address] [place] [address] Elayne Carnes MD Dysuria (Primary Dx); Vaginal pruritus 11/29/2023 12:45 PM VOLUNTEER SERVICES ASSISTANT [facility] ([facility]) [address] [place] [address] Doc Hampton MD Diarrhea, unspecified type (Primary Dx) 11/12/2023 [facility]phone [facility] [address] [place] [address] Tessa Weaver MA 11/10/2023 3:30 AM VOLUNTEER SERVICES ASSISTANT [facility] [address] [place] [address] Ismael Herrmann MD Gastroenteritis (Primary Dx) from Last 3 Months Family History Medical History Relation Name Comments Heart disease Father Dad Depression Mother Mom Relation Name Status Comments Father Dad Mother Mom Social History Tobacco Use Types Packs/Day Years [...] Sex Assigned at Female 11/10/2023 3:12 AM VOLUNTEER SERVICES ASSISTANT Gender Identity Female 11/10/2023 3:12 AM VOLUNTEER SERVICES ASSISTANT Sexual Orientation Not on file Last Filed Vital Signs Vital Sign Reading Time Taken Comments Blood Pressure - - Pulse - - Temperature - - Respiratory Rate - - Oxygen Saturation - - Inhaled Oxygen Concentration - - Weight 56.7 kg (125 lb) 11/10/2023 4:30 AM VOLUNTEER SERVICES ASSISTANT Height 154.9 cm (5' 1) 11/10/2023 4:30 AM VOLUNTEER SERVICES ASSISTANT Body Mass Index 23.62 11/10/2023 4:30 AM VOLUNTEER SERVICES ASSISTANT Plan of Treatment Health Maintenance Due Date Last Done Comments Dental Cleaning/Exam 1992 HIV Screening 1992 Hepatitis C Screening 1992 Pneumococcal: Ped (0 to 5 Yr s) and At-Risk Member (6 to 64 Yrs) (1 of 2 - PCV) 1998 Cervical Cancer Screening 2008 Annual Preventive Exam 2010 Hep B Infection Screening - Surface Antigen 2010 Covid-19 Immunization (1 - 2 023-24 season) 2023 Influenza Immunization (Seas on Ended) 2024 06/12/2012 Tetanus (Tdap or Td) Immunization 10/01/2030 10/01/2020, 02/20/2017, 09/04/2011, Additional history exists Hepatitis B Immunization Completed 993, 1992, 1992 HIB Immunization Completed 08/25/1993, , 1992, Additional history exists Polio Immunization Completed 05/30/1996, 0 12/05/1993, 1992, Additional history exists HPV Immunization Completed 02/20/2008, 07/2008, 08/15/2007 Varicella Immunization Completed 02/20/2008, 1994 Hepatitis A Immunization Completed 08/05/2010, 11/16 Care Teams Geospatial Developer Relationship Specialty Start Date End Date CassandraJanuary [address] [place] [address] PCP - General Family Medicine 11/29/23
== END 2024-01-18 14:28 | disposition home or self-care (01) ==
LOC: MRI 14:28
PROVIDERS: PCP Physician Assistant; Visit Provider Obstetrics & Gynecology
DX: R10.2 Pelvic and perineal pain (principal); G89.29 Other chronic pain
CPT/HCPCS: 72197; A9575

== ENCOUNTER 2024-03-21 11:00 | Outpatient (CLI) | payer OTHER, SELFPAY ==
--- OUTSIDE RECORDS SUMMARY | 2024-03-21 11:02 | XMS_ITS | Encounter Summary ---
Author Organization [facility] Address [address] [place] [address] Phone [email or web address] Care Team Providers Care Gis Consultant Name Role Phone UrmilaJanuary Primary Care Provider [phone] Reason for Visit * Reason Comments Urinary Issue Female / Vaginal Issue Encounter Details Date Type Department Care Team (Late st Contact Info) Description 12/29/2023 11:45 AM CDT [facility] ([facility]) [address] [place] [address] Elayne Carnes MD [address] [address] Dysuria (Primary Dx); Vaginal pruritus Social History Tobacco Use Types Packs/Day Years Used Date Smoking Tobacco: Every Day E-Cigarettes Alcohol Use Standard Drinks/Week Comments Not Currently 0 (1 standard drink = 0.6 oz pur e alcohol) Alcohol Use Answer Date Recorded Alcohol Use Status Not Currently 11/10/2023 Sex and Gender Information Value Date Recorded Sex Assigned at Female 11/10/2023 3:12 AM FIRE SAFETY DIRECTOR Gender Identity Female 11/10/2023 3:12 AM FIRE SAFETY DIRECTOR Sexual Orientation Not on file documented as [...] Member states they are currently in the [facility] Member states they are an employee of [employer] without access to a [facility]. Proximate Lab Location: [facility] - Lab [...] updated as appropriate: Allergies Meds Problems Raza L Tirado is a 33 y.o. female presents [...] organs documented in this encounter Care Teams Gis Consultant Relationship Specialty Start Date End Date NormanJanuary [address] [place] [address] PCP - General Family Medicine 11/29/23 documented as of this encounter
--- OUTSIDE RECORDS SUMMARY | 2024-03-21 11:02 | XMS_ITS | Clinical Summary ---
Author Organization [facility] Address [address] [place] [address] Phone [email or web address] ([facility]: [email or web address]) Care Team Providers Care Bag Checker Name Role Phone UrmilaJanuary Primary Care Provider [phone] Allergies Active Allergy Reactions Criticality Noted Date Comments Avocado 08/23/2015 PN: eggs and bananas-abd cramping Banana High 10/14/2015 Egg-Derived Products Low 06/14/2022 Raspberry GI intolerance Low 06/15/2016 Medications Medication Sig Dispensed Refills Start Date End Date Status citalopram (CeleXA) 20 MG tablet Take 20 mg by mouth once daily as needed. 11/10/2008 Active Drospiren-Eth Estrad-Levomefol 3-0.02-0.451 MG tablet 1 TAB ORALLY EVERY DAY; USING CONTINUOUSLY TO TREAT DYSMENORRHEA. 12/05/2023 Active levothyroxine (SYNTHROID) 75 MCG tabletIndications:Ot her specified hypothyroidism Take 1 tablet (75 mcg total) by mouth 1 (one) time each day. 30 tablet 01/29/2024 Active Active Problems Problem Noted Date Diagnosed [...] Encounters Date Type Department Care Team Description 01/29/2024 12:00 PM CDT [facility] ([facility]) [address] [place] [address] Angi Clements MD Other specified hypothyroidism (Primary Dx) 12/29/2023 11:45 AM CDT [facility] ([facility]) [address] [place] [address] Elayne Carnes MD Dysuria (Primary Dx); Vaginal pruritus from Last 3 Months Family History Medical History Relation Name Comments Heart disease Father Dad Depression Mother Mom Relation Name Status Comments Father Dad Mother Mom Social History Tobacco Use Types Packs/Day Years Used Date Smoking Tobacco: Every Day E-Cigarettes Smokeless Tobacco: Never Alcohol Use Standard Drinks/Week Comments Not Currently 0 (1 standard drink = 0.6 oz pur e alcohol) Alcohol Use Answer Date Recorded Alcohol Use Status Not Currently 11/10/2023 Sex and Gender Information Value Date Recorded Sex Assigned at Female 11/10/2023 3:12 AM ASSOCIATE PROFESSOR OF HISTORY Gender Identity Female 11/10/2023 3:12 AM ASSOCIATE PROFESSOR OF HISTORY Sexual Orientation Not on file Last Filed Vital Signs Vital Sign Reading Time Taken Comments Blood Pressure - - Pulse - - Temperature - - Respiratory Rate - - Oxygen Saturation - - Inhaled Oxygen Concentration - - Weight 56.7 kg (125 lb) 11/10/2023 4:30 AM ASSOCIATE PROFESSOR OF HISTORY Height 154.9 cm (5' 1) 11/10/2023 4:30 AM ASSOCIATE PROFESSOR OF HISTORY Body Mass Index 23.62 11/10/2023 4:30 AM ASSOCIATE PROFESSOR OF HISTORY Plan of Treatment Health Maintenance Due Date Last Done Comments Dental Cleaning/Exam 1992 HIV Screening 1992 Hepatitis C Screening 1992 Pneumococcal: Ped (0 to 5 Yr s) and At-Risk Member (6 to 64 Yrs) (1 of 2 - PCV) 1998 Cervical Cancer Screening 2008 Annual Preventive Exam 2010 Hep B Infection Screening - Surface Antigen 2010 Covid-19 Immunization (1 - 2 -24 season) 2023 Influenza Immunization (Seas on Ended) [...] A Immunization Completed 08/05/2010, 11/16 Care Teams Bag Checker Relationship Specialty Start Date End Date January [address] [place] [address] PCP - General Family Medicine 11/29/23
--- OUTSIDE RECORDS SUMMARY | 2024-03-21 11:02 | XMS_ITS | Encounter Summary ---
Author Organization [facility] Address [address] [place] [address] Phone [email or web address] Care Team Providers Care Sand Cutting Machine Operator Name Role Phone UrmilaJanuary Primary Care Provider [phone] Reason for Visit * Reason Comments Medication Issue Pt requesting medica tion refill Encounter Details Date Type Department Care Team (Late st Contact Info) Description 01/29/2024 12:[address] [facility] ([facility]) [address] [place] [address] Angi Clements MD [address] [id number] Other specified hypothyroidism (Primary Dx) Social History Tobacco Use Types Packs/Day Years Used Date Smoking Tobacco: Every Day E-Cigarettes Smokeless Tobacco: Never Alcohol Use Standard Drinks/Week Comments Not Currently 0 (1 standard drink = 0.6 oz pur e alcohol) Alcohol Use Answer Date Recorded Alcohol Use Status Not Currently 11/10/2023 Sex and Gender Information Value Date Recorded Sex Assigned at Female 11/10/2023 3:12 AM HAT BRIM CURLER Gender Identity Female 11/10/2023 3:12 AM HAT BRIM CURLER Sexual Orientation Not on file documented as of this encounter Patient Instructions * Patient Instructions* Angi Clements MD - 01/29/2024 12:00 PM CDT Assessment/Plan: Diagnoses and all orders for this visit: Other specified hypothyroidism - levothyroxine (SYNTHROID) 75 MCG tablet; Take 1 tablet (75 mcg total) by mouth 1 (one) time each day. Please follow up with your PCP on 02/01/2024 as previously scheduled. Counseling/Education: Discussed with the patient the above medication(s) and recommendation. documented in this encounter Progress Notes * Angi Clements MD - 01/29/2024 12:00 PM CDT Virtual Primary Care Note Member states they are currently in the [facility] Member states they are an employee of [email or web address] without access to a [facility] [employer] [place]. Proximate Lab Location: [facility] - [facility] Is the member interested in learning about Virtual Primary Care? No Subjective: Raza Tirado is a 33 y.o. female requesting a virtual encounter. Chief Complaint: Chief Complaint Patient presents with Medication Issue Pt requesting medication refill History Reviewed: The following portions of the member's chart were reviewed during this encounter and updated as appropriate: Tobacco Allergies Meds Problems Med Hx Surg Hx Fam Hx 33 yo female requesting medication refill of levothyroxine 75mcg qd. The pt is w/o c/o. She states she will be following up with her PCP 02/01/2024. She missed her last appt due to being ill that day. REASON FOR VISIT - OTHER Review of Systems Constitutional: Negative for activity change and appetite change. Objective: With the provider's guidance during this telephonic visit, the member's self- examination (includingany reported vital signs) revealed the following: Visit Vitals LMP 01/09/2024 Comment: followed by clerk typist currently for this No OB Status Having periods Smoking Status Every Day Physical Exam Neurological: Mental Status: She is alert and oriented to person, place, and time. Psychiatric: Mood and Affect: Mood normal. Thought Content: Thought content normal. Judgment: Judgment normal. Assessment/Plan: Diagnoses and all orders for this visit: Other specified hypothyroidism - levothyroxine (SYNTHROID) 75 MCG tablet; Take 1 tablet (75 mcg total) by mouth 1 (one) time each day. Please follow up with your PCP on 02/01/2024 as previously scheduled. Counseling/Education: Discussed with the patient the above medication(s) and recommendation. Telephonic Visit: Time spent with the patient: 16 minutes in clinical assessment, patient education/counseling, orchestrating care if warranted and chart documentation. Electronically Signed By Grant Rajan M.D. [facility] Primary Care Physician [facility]/[place] NP #[id number] Angi Clements MD documented in this encounter Plan of Treatment Not on file documented as of this encounter Visit Diagnoses Diagnosis Other specified hypothyroidism- Primary documented in this encounter Care Teams Sand Cutting Machine Operator Relationship Specialty Start Date End Date NormanJanuary [address] [place] [address] PCP - General Family Medicine 11/29/23 documented as of this encounter
--- OUTSIDE RECORDS SUMMARY | 2024-03-21 11:03 | XMS_ITS | Clinical Summary ---
Author Organization [facility] Address [address] [place] [address] Care Team Providers Care Press Supervisor Name Role Phone Giuseppe Larson PA-C Primary Care Provider [phone] Source Comments You are receiving this document as you are listed as the primary care provider,follow-up provider, or the patient has been referred to you for consultation.This is in compliance with the Medicare and[facility] EHR Incentive Program,which states Providers who transition their patient to another setting of careor provider of care or refers their patient to another provider of care shouldprovide summary care record for each transition of care or referral. [facility] Allergies Active Allergy Reactions Criticality Noted Date [...] mild 06/12/2012 Overview: Depression, major, recurrent, mild ([facility]) Last Assessment & Plan: PHQ-9 score of [...] menstrual cycle 08/15/2007 Overview: Menstrual Irregularity NOS Encounters Date Type Department Care Team Description 02/11/2024 Nurse Triage [facility] Medicine [address] [place], [place] [id number] Giuseppe Larson, MAYELIN Blood In Stool from Last 3 Months Immunizations Name Administration Dates Next Due 4vHPV (Gardasil) 02/20/2008,10/24/2007, 7 DTP 05/30/1996, 4,1992, 992,1992 Flu Vac Preserv Free (3+yrs) 09/04/2011, 08/05/2010,06/30/2009, 007 HepA Ped/Adol (1-18 yrs) 08/05/2010,12/09/2008 HepB Ped/Adol (0-18 yrs) 02/23/1993,1992,0 1992 Hib (ActHIB) 08/25/1993, 3,1992, 992 Influenza IIV4 (Quadrivalent ) 0.5mL (53082) 08/11/2019,07/19/2017,08/05/2013 Influenza LAIV (Nasal, 2-49 yrs) 06/12/2012 [...] Comments Blood Pressure 124/78 09/16/2022 2:52 PM [employer] Pulse 66 09/16/2022 2:52 PM [employer] Temperature 36.9 ??C (98.5 ??F) 09/16/2022 2:52 PM CS T Respiratory Rate 16 09/16/2022 2:52 PM [employer] Oxygen Saturation 100% 09/16/2022 2:52 PM [employer] Inhaled Oxygen Concentration - - Weight 74.8 [...] 12/09/2008 COVID-19 Vaccine ( season) 2023 Influenza (Season Ended) 2024 019, 07/19/2017, 08/05/2013, Additional history exists DTaP/Tdap/Td (9 - Tdap) 10/01/2030 10/01/20 20, 02/20/2017, 09/04/2011, Additional history exists Zoster/Shingles (1 [...] CDT FINAL GYNECOLOGICAL CYTOLOGY REPORT Pathology #: [id number] ?Date Obtained: 04/22/2014 ? Date Received: 04/23/2014 [...] Giuseppe Larson PA-C LAB_1 Performing Organization Address [facility] de Phone Number HP CONVERSION * HIV ANTIBODY (04/22/2014 10:11 AM CDT) HIV 1/HIV 2 Non-React Non-Reacti ve HP CONVERSION 04/22/2014 10:1 1 AM CDT 04/22/2014 3:38 PM CDT Giuseppe Larson PA-C LAB_1 Performing Organization Address [facility] de Phone Number HP CONVERSION * Hepatitis C Antibody, with Reflex (04/22/2014 10:11 AM CDT) Hepatitis C Antibody Non-React Non-Reacti ve HP CONVERSION 04/22/2014 10:1 1 AM CDT 04/22/2014 3:38 PM CDT Giuseppe Larson PA-C LAB_1 Performing Organization Address [facility] de Phone Number HP CONVERSION from Last 3 Months or Most Recently Relevant to Health Maintenance Care Teams Press Supervisor Relationship Specialty Start Date End Date Giuseppe Larson PA-C [address] [place] [address] PCP - General 01/16/11
--- OUTSIDE RECORDS SUMMARY | 2024-03-21 11:03 | XMS_ITS | Referral Summary ---
Author Organization [place] Address [address] [place] [address] Care Team Providers Care Flight Readiness Technician Name Role Phone Clinic, [facility] Primary Care Provide r Encounters Date Type Department Care Team Description 02/11/2024 Travel 02/11/2024 2:33 PM CDT - 02/11/2024 8:05 PM CDT Emergency [facility] Emergency Dept [address] [place] [address] Ezra Smart MD Anal fissure; External hemorrhoids Discharge Disposition: Home or Self Care from Last 3 Months Allergies No known active allergies Medications Medication [...] 4 TO 6 HOURS NEEDED 1 1 YEAR 03/20/2009 Active oxyCODONE IR (ROXICODONE) 5 MG tablet Take 1-2 tablets (5-10 mg) by mouth every 6 hours as needed for moderate to severe pain 12 tablet 01/18/2018 Active Social History Tobacco Use Types Packs/Day Years Used Date Smoking Tobacco: Never Assessed Adolescent Education Answer Date Record ed Getting School Help Needed Not on file 02/10 Sex and Gender Information Value Date Recorded Sex Assigned at Not on file Gender Identity Not on file Sexual Orientation Not on file Last Filed Vital Signs Vital Sign Reading Time Taken Comments Blood Pressure 115/79 02/11/2024 6:10 PM CDT Pulse 69 02/11/2024 6:10 PM CDT Temperature 36.5 ??C (97.7 ??F) 02/11/2024 1:06 PM CD T Respiratory Rate 16 02/11/2024 1:06 PM CDT Oxygen Saturation 100% 02/11/2024 6:45 PM CDT Inhaled Oxygen Concentration - - Weight 59 kg (130 lb) 02/11/2024 1:06 PM CDT Height 154.9 cm (5' 1) 02/11/2024 1:06 PM CDT Body Mass Index 24.56 02/11/2024 1:06 PM CDT Plan of Treatment Not on file Procedures Procedure Name Priority Date/Time Associated Diagnosis Comments CBC WITH PLATELETS STAT 02/11/2024 7: 30 PM CDT CTA ABDOMEN PELVIS WITH CONTRAST STAT 02/11/2024 6:00 PM CDT HCG QUALITATIVE STAT 02/11/2024 3:58 PM CDT CBC WITH PLATELETS & DIFFERENTIAL STAT 02/11/2024 1:20 PM CDT MAGNESIUM STAT 02/11/2024 1:20 PM CDT LIPASE STAT 02/11/2024 1:20 PM CDT HEPATIC FUNCTION PANEL STAT 02/11/2024 1:20 PM CDT CBC WITH PLATELETS AND DIFFERENTIAL STAT 02/11/2024 1:20 PM CDT BASIC METABOLIC PANEL STAT 02/11/2024 1:20 PM CDT from Last 3 Months Results * (ABNORMAL) CBC (platelets, no diff) (02/11/2024 7:30 PM CDT) WBC Count 7.6 4.0 - 11.0 10e3/uL 02/11/2024 7:41 PM CDT [facility] RBC Count 4.00 3.80 - 5.20 10e6/uL 02/11/2024 7:41 PM CDT [facility] Hemoglobin 10.8(L) 11.7 - 15.7 g/dL 02/11/2024 7:41 PM CDT [facility] Hematocrit 32.4(L) 35.0 - 47.0 % 02/11/2024 7:41 PM CDT [facility] MCV 81 78 - 100 fL 02/11/2024 7:41 PM CDT [facility] MCH 27.0 26.5 - 33.0 pg 02/11/2024 7:41 PM CDT [facility] MCHC 33.3 31.5 - 36.5 g/dL 02/11/2024 7:41 PM CDT [facility] RDW 13.5 10.0 - 15.0 % 02/11/2024 7:41 PM CDT [facility] Platelet Count 378 150 - 450 10e3/uL 02/11/2024 7:41 PM CDT [facility] Blood STRUCTURE OF LEFT UPPER LIMB / Unknown Venipuncture / Unknown 02/11/2024 7:30 PM CDT 02/11/2024 7:37 PM CDT Ezra Smart MD LAB - BLOOD ORDERABL ES LABORATORY [facility] [address] Lab (1st floor, no room number) [place] [address], [facility] * CTA Abdomen Pelvis with Contrast (02/11/2024 6:00 PM CDT) Anatomical Region Laterality Modality Abdomen/Pelvis, SUBRAD IR OK OCEDURE, UMP CT CTA, RAD CT Computed Tomography 02/11/2024 6:00 PM CDT Impressions 02/11/2024 6:34 PM CDT IMPRESSION: 1. ??No evidence of active GI bleeding. No acute abdominal or pelvic findings to correlate with clinical symptoms. Narrative 02/11/2024 6:34 PM CDT EXAM: CTA ABDOMEN PELVIS WITH CONTRAST LOCATION: [facility] DATE: 02/11/2024 INDICATION: Hematochezia COMPARISON: None. TECHNIQUE: CT angiogram abdomen pelvis during arterial phase of injection of IV contrast. 2D and 3D MIP reconstructions were performed by the computed tomography technologist. Dose reduction techniques were used. CONTRAST: 65mL Isovue 370 FINDINGS: ANGIOGRAM ABDOMEN/PELVIS: The aorta and mesenteric arteries are widely patent. No acute vascular findings. No excretion of contrast on the arterial or venous phase within the GI tract. No evidence of active vaginal bleeding. There is a hyperdense pill noted with colon at the hepatic flexure. LOWER CHEST: Normal HEPATOBILIARY: Normal. PANCREAS: Normal. SPLEEN: Normal. ADRENAL GLANDS: Normal. KIDNEYS/BLADDER: Normal. BOWEL: Normal. LYMPH NODES: Normal. PELVIC ORGANS: No pelvic masses. No significant fluid within the pelvic cul-de-sac. Normal appearance of the ovaries. MUSCULOSKELETAL: Normal. Procedure Note Mark Ocasio MD - 02/11/2024 EXAM: CTA ABDOMEN PELVIS WITH CONTRAST LOCATION: [facility] DATE: 02/11/2024 INDICATION: Hematochezia COMPARISON: None. TECHNIQUE: CT angiogram abdomen pelvis during arterial phase of injectionof IV contrast. 2D and 3D MIP reconstructions were performed by the CTtechnologist. Dose reduction techniques were used. CONTRAST: 65mL Isovue 370 FINDINGS: ANGIOGRAM ABDOMEN/PELVIS: The aorta and mesenteric arteries are widelypatent. No acute vascular findings. No excretion of contrast on thearterial or venous phase within the GI tract. No evidence of activevaginal bleeding. There is a hyperdense pill noted with colon at the hepatic flexure. LOWER CHEST: Normal HEPATOBILIARY: Normal. PANCREAS: Normal. SPLEEN: Normal. ADRENAL GLANDS: Normal. KIDNEYS/BLADDER: Normal. BOWEL: Normal. LYMPH NODES: Normal. PELVIC ORGANS: No pelvic masses. No significant fluid within the [id number]. Normal appearance of the ovaries. MUSCULOSKELETAL: Normal. IMPRESSION: 1. No evidence of active GI bleeding. No acute abdominal or pelvicfindings to correlate with clinical symptoms. Ezra Smart MD [facility] CT ORDERABLES * HCG qualitative Blood (02/11/2024 3:58 PM CDT) hCG Serum Qualitative Negative Negative SERENA 02/11/2024 4:55 PM CDT [facility] Comment:This test is for scr eening purposes. Results should be interpreted along with the clinical picture. Confirmation testing is available if warranted by ordering [id number], HCG Quantitative . Blood BLOOD SPECIMEN / Unknown Venipuncture / Unknown 02/11/2024 3:58 PM CDT 02/11/2024 4:04 PM CDT Ezra Smart MD LAB - BLOOD ORDERABL ES [facility] [address] Lab (1st floor, no room number) [place] [address], [facility] * (ABNORMAL) CBC with platelets and differential (02/11/2024 1:20 PM CDT) WBC Count 7.5 4.0 - 11.0 10e3/uL 02/11/2024 1:29 PM CDT [facility] RBC Count 4.27 3.80 - 5.20 10e6/uL 02/11/2024 1:29 PM CDT [facility] Hemoglobin 11.5(L) 11.7 - 15.7 g/dL 02/11/2024 1:29 PM CDT [facility] Hematocrit 35.1 35.0 - 47.0 % 02/11/2024 1:29 PM CDT [facility] MCV 82 78 - 100 fL 02/11/2024 1:29 PM CDT [facility] MCH 26.9 26.5 - 33.0 pg 02/11/2024 1:29 PM CDT [facility] MCHC 32.8 31.5 - 36.5 g/dL 02/11/2024 1:29 PM CDT [facility] RDW 13.6 10.0 - 15.0 % 02/11/2024 1:29 PM CDT [facility] Platelet Count 392 150 - 450 10e3/uL 02/11/2024 1:29 PM CDT [facility] % Neutrophils 66 % 02/11/2024 1:29 PM CDT [facility] % Lymphocytes 25 % 02/11/2024 1:29 PM CDT [facility] % Monocytes 6 % 02/11/2024 1:29 PM CDT [facility] % Eosinophils 3 % 02/11/2024 1:29 PM CDT [facility] % Basophils 0 % 02/11/2024 1:29 PM CDT [facility] % Immature Granulocytes 0 % 02/11/2024 1:29 PM CDT [facility] NRBCs per 100 WBC 0 <1 /100 024 1:29 PM CDT [facility] Absolute Neutrophils 4.9 1.6 - 8.3 10e3/uL 02/11/2024 1:29 PM CDT [facility] Absolute Lymphocytes 1.9 0.8 - 5.3 10e3/uL 02/11/2024 1:29 PM CDT [facility] Absolute Monocytes 0.5 0.0 - 1.3 10e3/uL 02/11/2024 1:29 PM CDT [facility] Absolute Eosinophils 0.3 0.0 - 0.7 10e3/uL 02/11/2024 1:29 PM CDT [facility] Absolute Basophils 0.0 0.0 - 0.2 10e3/uL 02/11/2024 1:29 PM CDT [facility] Absolute Immature Granulocytes 0.0 <=0.4 10e3/uL 02/11/2024 1:29 PM CDT [facility] Absolute NRBCs 0.0 10e3/uL 02/11/2024 1:29 PM CDT [facility] Blood STRUCTURE OF LEFT UPPER LIMB / Unknown Venipuncture / Unknown 02/11/2024 1:20 PM CDT 02/11/2024 1:25 PM CDT Ezra Smart MD LAB - BLOOD ORDERABL ES [facility] [address] Lab (1st floor, no room number) [place] [address], [facility] * Magnesium (02/11/2024 1:20 PM CDT) Magnesium 1.9 1.7 - 2.3 mg/dL 02/11/2024 4:05 PM CDT [facility] Blood STRUCTURE OF LEFT UPPER LIMB / Unknown Venipuncture / Unknown 02/11/2024 1:20 PM CDT 02/11/2024 1:25 PM CDT Ezra Smart MD LAB - BLOOD ORDERABL ES Performing Organization Address City/[facility]/ZIP Co de Phone Number LABORATORY [facility] [address] Lab (1st floor, no room number) [place] [address] * Lipase (02/11/2024 1:20 PM CDT) Lipase 47 13 - 60 U/L 02/11/2024 4:05 PM CDT [facility] Blood STRUCTURE OF LEFT UPPER LIMB / Unknown Venipuncture / Unknown 02/11/2024 1:20 PM CDT 02/11/2024 1:25 PM CDT Ezra Smart MD LAB - BLOOD ORDERABL ES Performing Organization Address [facility]/ZIP Co de Phone Number LABORATORY [facility] [address] Lab (1st floor, no room number) [place] [phone] * Hepatic function panel (02/11/2024 1:20 PM CDT) Protein Total 7.2 6.4 - 8.3 g/dL 02/11/2024 4:05 PM CDT [facility] Albumin 3.9 3.5 - 5.2 g/dL 02/11/2024 4:05 PM CDT [facility] Bilirubin Total 0.3 <=1.2 mg/dL 02/11/2024 4:05 PM CDT [facility] Alkaline Phosphatase 60 40 - 150 U/L 02/11/2024 4:05 PM CDT [facility] Comment:Reference intervals for this test were updated on 08/28/2023 to more accurately reflect our healthy population. There may be differences in the flagging of prior results with similar values performed with this method. Interpretation of those prior results can be made in the context of the updated reference intervals. AST 19 0 - 45 U/L 02/11/2024 4:05 PM CDT [facility] Comment:Reference intervals for this test were updated on 03/26/2023 to more accurately reflect our healthy population. There may be differences in the flagging of prior results with similar values performed with this method. Interpretation of those prior results can be made in the context of the updated reference intervals. ALT 10 0 - 50 U/L 02/11/2024 4:05 PM CDT [facility] Comment:Reference intervals for this test were updated on 03/26/2023 to more accurately reflect our healthy population. There may be differences in the flagging of prior results with similar values performed with this method. Interpretation of those prior results can be made in the context of the updated reference intervals. Bilirubin Direct <0.20 0.00 - 0.30 mg/dL 02/11/2024 4:05 PM CDT [facility] Blood STRUCTURE OF LEFT UPPER LIMB / Unknown Venipuncture / Unknown 02/11/2024 1:20 PM CDT 02/11/2024 1:25 PM CDT Ezra Smart MD LAB - BLOOD ORDERABL ES LABORATORY [facility] [address] [facility] Lab (1st floor, no room number) [place] [address] * (ABNORMAL) Basic metabolic panel (BMP) (02/11/2024 1:20 PM CDT) Sodium 136 135 - 145 mmol/L 02/11/2024 1:49 PM CDT [facility] Comment:Reference intervals for this test were updated on 07/10/2023 to more accurately reflect our healthy population. There may be differences in the flagging of prior results with similar values performed with this method. Interpretation of those prior results can be made in the context of the updated reference intervals. Potassium 4.1 3.4 - 5.3 mmol/L 02/11/2024 1:49 PM CDT [facility] Chloride 101 98 - 107 mmol/L 02/11/2024 1:49 PM CDT [facility] Carbon Dioxide (CO2) 26 22 - 29 mmol/L 02/11/2024 1:49 PM CDT [facility] Anion Gap 9 7 - 15 mmol/L 02/11/2024 1:49 PM CDT [facility] Urea Nitrogen 13.3 6.0 - 20.0 mg/dL 02/11/2024 1:49 PM CDT [facility] Creatinine 0.79 0.51 - 0.95 mg/dL 02/11/2024 1:49 PM CDT [facility] GFR Estimate >90 >60 mL/min/1. 73m2 02/11/2024 1:49 PM CDT [facility] Calcium 8.9 8.6 - 10.0 mg/dL 02/11/2024 1:49 PM CDT [facility] Glucose 107(H) 70 - 99 mg/dL 02/11/2024 1:49 PM CDT [facility] Blood STRUCTURE OF LEFT UPPER LIMB / Unknown Venipuncture / Unknown 02/11/2024 1:20 PM CDT 02/11/2024 1:25 PM CDT Ezra Smart MD LAB - BLOOD ORDERABL ES [facility] [address] Lab (1st floor, no room number) [place] [address], [facility] from Last 3 Months Care Teams Flight Readiness Technician Relationship Specialty Start Date End Date Clinic[facility] [address] [place] [address] PCP - General 03/14/23
--- OUTSIDE RECORDS SUMMARY | 2024-03-21 11:03 | XMS_ITS | Encounter Summary ---
Author Organization [place] Address [address] [place] [address] Care Team Providers Care Roof Painter Name Role Phone Clinic, [facility] Primary Care Provide r Encounter Details Date Type Department Care Team (Latest Contact Info) Description 02/11/2024 Travel Social History Tobacco Use Types Packs/Day Years Used Date Smoking Tobacco: Never Assessed Adolescent Education Answer Date Record ed Getting School Help Needed Not on file 02/10 Sex and Gender Information Value Date Recorded Sex Assigned at Not on file Gender Identity Not on file Sexual Orientation Not on file documented as of this encounter Plan of Treatment Not on file documented as of this encounter Visit Diagnoses Not on filedocumented in this encounter Care Teams Roof Painter Relationship Specialty Start Date End Date Arian, Roxanna Horton [address] [place] [address] PCP - General 03/14/23 documented as of this encounter
--- OUTSIDE RECORDS SUMMARY | 2024-03-21 11:03 | XMS_ITS | Encounter Summary ---
Author Organization [facility] Address [address] [place] [address]. [place] [address] Care Team Providers Care Clerk Secretary Name Role Phone Clinic, [facility] Primary Care Provide r Reason for Visit * Reason Comments Rectal Bleeding Encounter Details Date Type Department Care Team (Late st Contact Info) Description 02/11/2024 2:33 PM CDT - 02/11/2024 8:05 PM CDT Emergency [facility] Emergency Dept [address] [place] [address] Ezra Smart MD [address], [address] [id number] Anal fissure; External hemorrhoids Discharge Disposition: Home or Self Care Social History Tobacco Use Types Packs/Day Years [...] Mass Index 24.56 02/11/2024 1:06 PM CDT documented in this encounter Discharge Instructions * Attachments The following attachments cannot be sent through Care Everywhere. * Anal Fissure (Maori) * Hemorrhoids (Maori) documented in this encounter Medications at Time of Discharge Medication Sig Dispensed Refills Start Date End Date NASONEX 50 MCG/ACT NA SUSP INHALE 2 SPRAYS IN EACH NOSTRIL ONE DAILY 3 MONTHS 3 03/20/2009 oxyCODONE IR (ROXICODONE) 5 MG tablet Take 1-2 tablets (5-10 mg) by mouth every 6 hours as needed for moderate to severe pain 12 tablet 01/18/2018 PROAIR HFA 108 (90 BASE) MCG/ACT IN AERS INHALE 1 TO 2 PUFFS EVERY 4 TO 6 HOURS NEEDED 1 1 YEAR 03/20/2009 RECLIPSEN 0.15-30 MG-MCG OR TABS 1 TABLET DAILY 28 0 03/20/2009 documented as of this encounter ED Notes * Joshua Murcia RN - 02/11/2024 1:08 PM CDT Pt presents for complaint of blood in her stool. States she has noted dark red blood with clots up to dime size in her last two bowel movements. Denies blood thinners. Describes generalized weakness.Additionally notes that she is being treated for endometriosis and is on a new control for the past 50 days. Notes she has been menstruating for the past 35 days. ABC intact. A&Ox4. Triage Assessment (Adult) Row Name 02/11/24 1303 Triage Assessment Airway WDL WDL Respiratory WDL Respiratory WDL WDL Skin Circulation/Temperature WDL Skin Circulation/Temperature WDL WDL Cardiac WDL Cardiac WDL WDL Peripheral/Neurovascular WDL Peripheral Neurovascular WDL WDL Cognitive/Neuro/Behavioral WDL Cognitive/Neuro/Behavioral WDL WDL * Ezra Smart MD - 02/11/2024 1:04 PM CDT History Chief Complaint: Rectal Bleeding The history is provided by the patient. Raza Tirado is a 33 year old female who presents to the ED for rectal bleeding. The patient reports this morning at 0900 and 1130 she noticed blood in her stool. She notes the blood looked like clots. She states she is on day 39 of her menstrual cycle but adds she does not believe the blood is from her vagina. She states she is experiencing rectal soreness when wiping, upper abdominal pain, and abdominal cramping. She notes she has a history of ovarian cysts and is getting a hysterectomy planned as control has not helped. She reports she is taking levothyroxine. She states she has taken Advil and tylenol but notes it has been a couple days and denies taking it consistently. She denies this happening before, recent motrin use on regular basis, recent NSAID use on regular basis, recent aleve use on regular basis, history of ulcers, or blood thinner use. Independent Historian: None - Patient Only Review of External Notes: None Medications: Citalopram Etonogestrel-ethinyl estradiol Levothyroxine Past Medical History: Anxiety Depression Mild intermittent asthma without complication Positive ALICIA (antinuclear antibody) Abnormal thyroid blood test Attention deficit disorder Dysmenorrhea Irregular menstrual cycle Disease of thyroid gland Past Surgical History: Tonsil and adenoidectomy Physical Exam Patient Vitals for the past 24 hrs: BP Temp Pulse Resp SpO2 Height Weight 02/11/24 1845 -- -- -- -- 100 % -- -- 02/11/24 1810 115/79 -- 69 -- -- -- -- 02/11/24 1630 -- -- -- -- 100 % -- -- 02/11/24 1600 111/76 -- 71 -- -- -- -- 02/11/24 1306 111/71 97.7 ??F (36.5 ??C) 67 16 100 % 1.549 m (5' 1) 59 kg (130 lb) Physical Exam General: Sitting on the ED chair HEENT: Normocephalic, atraumatic Cardiac: Left radial 2+, regular rate and rhythm Pulm: Breathing comfortably, no accessory muscle usage, no conversational dyspnea GI: Abdomen soft, mild generalized discomfort with palpation that does not localize, no rigidity orguarding MSK: No bony deformities Skin: Warm and dry Neuro: Moves all extremities Psych: Pleasant mood and affect Emergency Department Course Imaging: CTA Abdomen Pelvis with Contrast Final Result IMPRESSION: 1. No evidence of active GI bleeding. No acute abdominal or pelvic findings to correlate with clinical symptoms. Laboratory: Labs Ordered and Resulted from Time of ED Arrival to Time of ED Departure BASIC METABOLIC PANEL - Abnormal Result Value Sodium 136 Potassium 4.1 Chloride 101 Carbon Dioxide (CO2) 26 Anion Gap 9 Urea Nitrogen 13.3 Creatinine 0.79 GFR Estimate >90 Calcium 8.9 Glucose 107 (*) CBC WITH PLATELETS AND DIFFERENTIAL - Abnormal WBC Count 7.5 RBC Count 4.27 Hemoglobin 11.5 (*) Hematocrit 35.1 MCV 82 MCH 26.9 MCHC 32.8 RDW 13.6 Platelet Count 392 % Neutrophils 66 % Lymphocytes 25 % Monocytes 6 % Eosinophils 3 % Basophils 0 % Immature Granulocytes 0 NRBCs per 100 WBC 0 Absolute Neutrophils 4.9 Absolute Lymphocytes 1.9 Absolute Monocytes 0.5 Absolute Eosinophils 0.3 Absolute Basophils 0.0 Absolute Immature Granulocytes 0.0 Absolute NRBCs 0.0 CBC WITH PLATELETS - Abnormal WBC Count 7.6 RBC Count 4.00 Hemoglobin 10.8 (*) Hematocrit 32.4 (*) MCV 81 MCH 27.0 MCHC 33.3 RDW 13.5 Platelet Count 378 HEPATIC FUNCTION PANEL - Normal Protein Total 7.2 Albumin 3.9 Bilirubin Total 0.3 Alkaline Phosphatase 60 AST 19 ALT 10 Bilirubin Direct <0.20 LIPASE - Normal Lipase 47 MAGNESIUM - Normal Magnesium 1.9 HCG QUALITATIVE - Normal hCG Serum Qualitative Negative Procedures None Emergency Department Course & Assessments: Interventions: Medications iopamidol (ISOVUE-370) solution 500 mL (65 mLs Intravenous $Given 02/11/24 4845) CT scan flush (62 mLs Intravenous $Given 02/11/24 4348) Independent Interpretation (X-rays, CTs, rhythm strip): None Assessments/Consultations/Discussion of Management or Tests: ED Course as of 02/11/242233Feb 11, 2024 153 I obtained history and examined the patient as noted above. 1950 Reevaluation Social Determinants of Health affecting care: None Disposition: The patient was discharged. Impression & Plan [facility] Diagnoses: None Medical Decision Makin-year-old female presents with concern for rectal bleeding. Seems that the blood she noted in thetoilet was external to the stool on my review of the image she had on her phone. Initial suspicion is highest for a ruptured hemorrhoid or anal fissure. Patient also describes some new abdominal painfrom her baseline. So CT was obtained and shows no evidence of acute GI bleed or other emergent findings in the abdomen/pelvis. Lab work is reassuring, repeat CBC shows relative stability of the patient's H&H. Repeat evaluation in a ED exam room with a nurse plastics supervisor. There is an anal fissure and small deflated hemorrhoid, both of which I suspect other cause for the patient's bleeding. Overall appropriate for outpatient management with the reassuring workup above. Patient discharged home, recommending sitz bath's and PCP follow-up. Diagnosis: ICD-10-CM 1. Anal fissure K60.2 2. External hemorrhoids K64.4 Scribe Disclosure: I Jennifer Mary Grace, am serving as a scribe at 4:37 PM on 02/11/2024 to document services personally performed by Ezra Smart MD based on my observations and the provider's statements to me. 02/11/2024 Ezra Smart MD King, Colin, MD 02/11/244 documented in this encounter Plan of Treatment Not on file documented as of this encounter Procedures Procedure Name Priority Date/Time Associated Diagnosis Comments CBC WITH PLATELETS STAT 02/11/2024 7: 30 PM CDT CTA ABDOMEN PELVIS WITH CONTRAST STAT 02/11/2024 6:00 PM CDT HCG QUALITATIVE STAT 02/11/2024 3:58 PM CDT CBC WITH PLATELETS AND DIFFERENTIAL STAT 02/11/2024 1:20 PM CDT CBC WITH PLATELETS & DIFFERENTIAL STAT 02/11/2024 1:20 PM CDT MAGNESIUM STAT 02/11/2024 1:20 PM CDT LIPASE STAT 02/11/2024 1:20 PM CDT HEPATIC FUNCTION PANEL STAT 02/11/2024 1:20 PM CDT BASIC METABOLIC PANEL STAT 02/11/2024 1:20 PM CDT documented in this encounter Results * (ABNORMAL) CBC (platelets, no diff) [...] LAB - BLOOD ORDERABL ES [facility] [address] [facility] (1st floor, no room number) [place] [address], [facility] * CTA Abdomen Pelvis with Contrast (02/11/2024 6:00 PM CDT) Anatomical Region Laterality Modality Abdomen/Pelvis, SUBRAD IR SD OCEDURE, UMP CT CTA, RAD CT Computed Tomography 02/11/2024 6:00 PM CDT Impressions 02/11/2024 6:34 PM CDT IMPRESSION: 1. ??No evidence of active GI bleeding. No acute abdominal or pelvic findings to correlate with clinical symptoms. Narrative 02/11/2024 6:34 PM CDT EXAM: CTA ABDOMEN PELVIS WITH CONTRAST LOCATION: [facility] DATE: 02/11/2024 INDICATION: Hematochezia COMPARISON: None. TECHNIQUE: CT angiogram abdomen pelvis during arterial phase of injection of IV contrast. 2D and 3D MIP reconstructions were performed by the ophthalmic technologist. Dose reduction techniques were used. CONTRAST: [...] EXAM: CTA ABDOMEN PELVIS WITH CONTRAST LOCATION: [facility] DATE: 02/11/2024 INDICATION: Hematochezia COMPARISON: [...] pelvic masses. No significant fluid within the [id number]. Normal appearance of the ovaries. MUSCULOSKELETAL: Normal. IMPRESSION: 1. No evidence of active GI bleeding. No acute abdominal or pelvicfindings to correlate with clinical symptoms. Ezra Smart MD IMG CT ORDERABLES * HCG qualitative Blood (02/11/2024 3:58 PM CDT) [facility] hCG Serum Qualitative Negative Negative SERENA 02/11/2024 4:55 PM CDT [facility] LAB[facility]ATORY Comment:This test is for scr eening purposes. Results should be interpreted along with the clinical picture. Confirmation testing is available if warranted by ordering [id number], HCG Quantitative . Blood BLOOD SPECIMEN / Unknown Venipuncture / Unknown 02/11/2024 3:58 PM CDT 02/11/2024 4:04 PM CDT Ezra Smart MD LAB - BLOOD ORDERABL ES Performing Organization Address City/[facility]/ZIP Co de Phone Number [facility] Care Lab [address] [facility] [employer] Lab (1st floor, no room number) [address] * Magnesium (02/11/2024 1:20 PM CDT) [facility] Magnesium 1.9 1.7 - 2.3 mg/dL 02/11/2024 4:05 PM CDT LABORATORY Blood STRUCTURE OF LEFT UPPER LIMB / Unknown Venipuncture / Unknown 02/11/2024 1:20 PM CDT 02/11/2024 1:25 PM CDT Ezra Smart MD LAB - BLOOD ORDERABL ES [facility] Acute [facility] Lab [address] Lab (1st floor, no room number) [place] [id number] * Lipase (02/11/2024 1:20 PM CDT) [facility] Lipase 47 13 - 60 U/L 02/11/2024 4:05 PM CDT [facility] LAB[facility] Blood STRUCTURE OF LEFT UPPER LIMB / Unknown Venipuncture / Unknown 02/11/2024 1:20 PM CDT 02/11/2024 1:25 PM CDT Ezra Smart MD LAB - BLOOD ORDERABL ES [facility] [address] Lab (1st floor, no room number) [place] [address] * Hepatic function panel (02/11/2024 1:20 PM [...] LAB - BLOOD ORDERABL ES [facility] [address] Lab (1st floor, no room number) [place] [address] * (ABNORMAL) CBC with platelets and differential [...] NRBCs per 100 WBC 0 <1 /100 2 024 1:29 PM CDT [facility] LAB[facility]ATORY Absolute [...] MD LAB - BLOOD ORDERABL ES LABORATORY [facility] [address] [facility] Lab (1st floor, no room number) [place] [address] * (ABNORMAL) Basic metabolic panel (BMP) (02/11/2024 1:20 PM CDT) [facility] Sodium 136 135 - 145 mmol/L 02/11/2024 [...] - 5.3 mmol/L 02/11/2024 1:49 PM CDT LABORATORY Chloride 101 98 - 107 mmol/L 02/11/2024 1:49 PM CDT LABORATORY Carbon Dioxide (CO2) 26 22 - 29 mmol/L 02/11/2024 1:49 PM CDT LABORATORY Anion Gap 9 7 - 15 mmol/L 02/11/2024 1:49 PM CDT LABORATORY Urea Nitrogen 13.3 6.0 - 20.0 mg/dL 02/11/2024 1:49 PM CDT LABORATORY Creatinine 0.79 0.51 - 0.95 mg/dL 02/11/2024 1:49 PM CDT LABORATORY GFR Estimate >90 >60 mL/min/1. 73m2 02/11/2024 1:49 PM CDT LABORATORY Calcium 8.9 8.6 - 10.0 mg/dL 02/11/2024 1:49 PM CDT LABORATORY Glucose 107(H) 70 - 99 mg/dL 02/11/2024 1:49 PM CDT LABORATORY Blood STRUCTURE OF LEFT UPPER LIMB / Unknown Venipuncture / Unknown 02/11/2024 1:20 PM CDT 02/11/2024 1:25 PM CDT Ezra Smart MD LAB - BLOOD ORDERABL ES LABORATORY [facility] [address] [facility] Lab (1st floor, no room number) [place] [address], [facility] documented in this encounter Visit Diagnoses Diagnosis Anal fissure External hemorrhoids External hemorrhoids without mention of complication documented in this encounter Administered Medications Inactive Administered Medications - up to 3 most recent administrations Medication Order MAR Action Action Date Dose Rate Site CT scan flush Intravenous, 100 mL, ONCE, On Sun02/11/24 at 1750, For 1 dose, This entry is for use by Radiology to intermittently used as a flush in patients receiving a CT scan. $Given 02/11/2024 5:54 PM CDT 62 mLs iopamidol (ISOVUE-370) solution 500 mL 500 mL, Intravenous, ONCE, On Sun02/11/24 at 1750, For 1 dose $Given 02/11/2024 5:49 PM CDT 65 mLs documented in this encounter Active and Recently Administered Medications Times are shown in CDT. Scheduled Medication Order 02/09/2024 02/10/2024 02/11/2024 CT scan flush (COMPLETED) Intravenous, 100 mL, ONCE, On Sun02/11/24 at 1750, For 1 dose, This entry is for use by Radiology to intermittently used as a flush in patients receiving a CT scan. 1754 ($Given - Provi radha: Lacey Henderson) iopamidol (ISOVUE-370) solution 500 mL (COMPLETED) 500 mL, Intravenous, ONCE, On Sun02/11/24 at 1750, For 1 dose 1749 ($Given - Provi radha: Lacey Henderson) documented in this encounter Care Teams Clerk Secretary Relationship Specialty Start Date End Date Clinic, [facility] [address] [place] [address] PCP - General 03/14/23 documented as of this encounter
--- OUTSIDE RECORDS SUMMARY | 2024-03-21 11:03 | XMS_ITS | Clinical Summary ---
Author Organization [facility] Address [address] [place] [address]. [place] [address] Care Team Providers Care Senior Economist Name Role Phone Clinic, [facility] Primary [...] to severe pain 12 tablet 01/18/2018 Active Encounters Date Type Department Care Team Description 02/11/2024 2:33 PM CDT - 02/11/2024 8:05 PM CDT Emergency [facility] Emergency Dept [address] [place] [address] Ezra Smart MD Anal fissure; External hemorrhoids Discharge Disposition: Home or Self Care 02/11/2024 Travel from Last 3 Months Social History Tobacco Use Types Packs/Day Years [...] 02/11/2024 1:06 PM CDT Plan of Treatment Health Maintenance Due Date Last Done Comments ADVANCE CARE PLANNING 1992 ANNUAL REVIEW OF HM ORDERS 1992 YEARLY PREVENTIVE VISIT 1992 HIV SCREENING 2007 HEPATITIS C SCREENING 2010 PAP 2013 COVID-19 Vaccine ( season) 2023 PHQ-2 (once per calendar year) 2023 INFLUENZA VACCINE (Season Ended) 2024 08/11/2019, 07/19/2017, 08/05/2013, Additional history exists DTAP/TDAP/TD IMMUNIZATION (9 - Td or Tdap) 10/01/2030 10/01/2020, 02/20/2017, 09/04/2011, Additional history exists HEPATITIS B IMMUNIZATION Completed 993, 1992, 1992 IPV IMMUNIZATION Completed 05/30/1996, , 1992, Additional history exists HPV IMMUNIZATION Completed 02/20/2008, 07/2008, 08/15/2007 MENINGITIS IMMUNIZATION Aged Out 02/20/2008 No l onger eligible based on patient's age to complete this topic Pneumococcal Vaccine: Pediatrics (0 to 5 Years) and At-Risk Patients (6 to 64 Years) Aged Out No longer eligible based on patient's age to complete this topic RSV MONOCLONAL ANTIBODY Aged Out No l onger eligible based on patient's age to complete this topic Procedures Procedure Name Priority Date/Time Associated Diagnosis [...] (platelets, no diff) (02/11/2024 7:30 PM CDT) Pathologist [facility] WBC Count 7.6 4.0 - 11.0 10e3/uL [...] - 15.0 % 02/11/2024 7:41 PM CDT LABORATORY Platelet Count 378 150 - 450 10e3/uL 02/11/2024 7:41 PM CDT [facility] Blood STRUCTURE OF LEFT UPPER LIMB / Unknown Venipuncture / Unknown 02/11/2024 7:30 PM CDT 02/11/2024 7:37 PM CDT Ezra Smart MD LAB - BLOOD ORDERABL ES [facility] Acute [facility] Lab [address] Lab (1st floor, no room number) [place] [address] * CTA Abdomen Pelvis with Contrast (02/11/2024 6:00 PM CDT) Anatomical Region Laterality Modality Abdomen/Pelvis, SUBRAD IR FL OCEDURE, UMP CT CTA, RAD CT Computed Tomography 02/11/2024 6:00 PM CDT Impressions 02/11/2024 6:34 PM CDT IMPRESSION: 1. ??No evidence of active GI bleeding. No acute abdominal or pelvic findings to correlate with clinical symptoms. Narrative 02/11/2024 6:34 PM CDT EXAM: CTA ABDOMEN PELVIS WITH CONTRAST LOCATION: [facility] DATE: 02/11/2024 INDICATION: Hematochezia COMPARISON: None. TECHNIQUE: CT angiogram abdomen pelvis during arterial phase of injection of IV contrast. 2D and 3D MIP reconstructions were performed by the processing technologist. Dose reduction techniques were used. CONTRAST: [...] EXAM: CTA ABDOMEN PELVIS WITH CONTRAST LOCATION: [facility] DATE: 02/11/2024 INDICATION: Hematochezia COMPARISON: None. TECHNIQUE: [...] pelvic masses. No significant fluid within the [id number]-uz-dnu. Normal appearance of the ovaries. MUSCULOSKELETAL: Normal. IMPRESSION: 1. No evidence of active GI bleeding. No acute abdominal or pelvicfindings to correlate with clinical symptoms. Ezra Smart MD G CT ORDERABLES * HCG qualitative Blood (02/11/2024 3:58 PM CDT) Pathologist [facility] hCG Serum Qualitative Negative Negative SERENA 02/11/2024 4:55 PM CDT LABORATORY Comment:This test is for scr eening purposes. Results should be interpreted along with the clinical picture. Confirmation testing is available if warranted by ordering [id number], HCG Quantitative . Blood BLOOD SPECIMEN / Unknown Venipuncture / Unknown 02/11/2024 3:58 PM CDT 02/11/2024 4:04 PM CDT Ezra Smart MD LAB - BLOOD ORDERABL ES [facility] Acute Care Lab [address] [facility] Lab (1st floor, no room number) [place] [address], [facility] * (ABNORMAL) CBC with platelets and differential (02/11/2024 1:20 PM CDT) Pathologist [facility] WBC Count 7.5 4.0 - 11.0 10e3/uL [...] Smart MD LAB - BLOOD ORDERABL ES [facility] Lab [address] Lab (1st floor, no room number) [address] * Magnesium (02/11/2024 1:20 PM CDT) Magnesium 1.9 1.7 - 2.3 mg/dL 02/11/2024 4:05 PM CDT [facility] LAB[facility]AT[facility] Blood STRUCTURE OF LEFT UPPER LIMB / Unknown Venipuncture / Unknown 02/11/2024 1:20 PM CDT 02/11/2024 1:25 PM CDT Ezra Smart MD LAB - BLOOD ORDERABL ES Performing Organization Address [facility]/ZIP Co de Phone Number [facility] Lab [address] Lab (1st floor, no room number) [address] * Lipase (02/11/2024 1:20 PM CDT) Lipase 47 13 - 60 U/L 02/11/2024 4:05 PM CDT [facility] LAB[facility] Blood STRUCTURE OF LEFT UPPER LIMB / Unknown Venipuncture / Unknown 02/11/2024 1:20 PM CDT 02/11/2024 1:25 PM CDT Ezra Smart MD LAB - BLOOD ORDERABL ES [facility] Lab [address] Lab (1st floor, no room number) [place] [address], [facility] * Hepatic function panel (02/11/2024 1:20 PM [...] 1:20 PM CDT 02/11/2024 1:25 PM CDT Ezar Smart MD LAB - BLOOD ORDERABL ES LABORATORY [facility] Acute Care Lab [address] Lab (1st floor, no room number) [place] [address], [facility] * (ABNORMAL) Basic metabolic panel (BMP) (02/11/2024 [...] MD LAB - BLOOD ORDERABL ES LABORATORY [facility] Acute Care Lab [address] Lab (1st floor, no room number) [place] [address], [facility] from Last 3 Months Care Teams Senior Economist Relationship Specialty Start Date End Date Clinic, Roxanna Horton [address] [place], [place] [phone] PCP - General 03/14/23
--- OUTSIDE RECORDS SUMMARY | 2024-03-21 11:03 | XMS_ITS | Encounter Summary ---
Author Organization [employer] Address [address] [place] [address] Care Team Providers Care Salesperson Books Name Role Phone Giuseppe Larson PA-C Primary Care Provider [phone] Reason for Visit * Reason Comments Blood In Stool Encounter Details Date Type Department Care Team (Late st Contact Info) Description 02/11/2024 Nurse Triage [facility] [address] [facility] JANELLE [place] [phone] Giuseppe Larson PA-C [address] [place] [phone] Blood In Stool Social History Tobacco Use Types Packs/Day Years [...] on file documented as of this encounter Nursing Notes * Ayesha Rose, RN - 02/11/2024 12:47 PM CDT Spoke with patient, reports formed brown stool with 4 large clots and 3 smaller clots passed in stool and toilet water today.started on 02/10/24. Increased weakness and fatigue. Denies diarrhea, dizziness, abdominal pain Problem list reviewed as related to this call. Reason for Disposition SEVERE rectal bleeding (large blood clots; constant or on and off bleeding) Protocols used: Rectal [id number] documented in this encounter Plan of Treatment Not on file documented as of this encounter Visit Diagnoses Not on filedocumented in this encounter Care Teams Salesperson Books Relationship Specialty Start Date End Date Giuseppe Larson PA-C [address] [place] [address] PCP - General 01/16/11 documented as of this encounter
== END 2024-03-21 11:01 | disposition home or self-care (01) ==
LOC: NFLDREF 11:01
PROVIDERS: PCP Physician Assistant; Visit Provider Physician Assistant
DX: Z01.419 Encounter for gynecological examination (general) (routine) without abnormal findings (principal); E03.9 Hypothyroidism, unspecified; Z13.1 Encounter for screening for diabetes mellitus; Z13.6 Encounter for screening for cardiovascular disorders; Z13.29 Encounter for screening for other suspected endocrine disorder
CPT/HCPCS: 80061; 82947; 84443

== ENCOUNTER 2024-05-13 09:11 | Day surgery (SDC) | payer OTHER, SELFPAY ==
[2024-05-13] VITALS (20 sets, daily range): BP systolic 102–124; BP diastolic 49–79; PULSE 52–66; RESP 14–18; TEMP 36.4–37.3; O2SAT 97–100; BMI 26.2
--- OUTSIDE RECORDS SUMMARY | 2024-05-13 09:14 | XMS_ITS | Referral Summary ---
Author Organization [facility] Address [address] [place] [address] Care Team Providers Care Medical Record Librarian Name Role Phone Clinic, Roxanna [facility] Primary [...] of Treatment Not on file Care Teams Medical Record Librarian Relationship Specialty Start Date End Date Clinic, Roxanna [facility] [address] [place], [place] [phone] PCP - General 03/14/23
--- OUTSIDE RECORDS SUMMARY | 2024-05-13 09:14 | XMS_ITS | Encounter Summary ---
Author Organization [facility] Address [address] [place] [address] Care Team Providers Care Cable Engineer Name Role Phone Clinic, Roxanna [facility] Primary [...] on filedocumented in this encounter Care Teams Cable Engineer Relationship Specialty Start Date End Date Arian, Roxanna Horton [address] [place] [address] PCP - General 03/14/23 documented as of this encounter
--- OUTSIDE RECORDS SUMMARY | 2024-05-13 09:14 | XMS_ITS | Clinical Summary ---
Author Organization [facility] Address [address] [place] [address] Phone [email or web address] Care Team Providers Care Calculating Machine Mechanic Name Role Phone UrmilaJanuary Primary Care Provider [phone] Allergies Active Allergy Reactions Criticality Noted Date [...] for a few years now. Dysmenorrhea 08/15/2007 Family History Medical History Relation Name Comments [...] Sex Assigned at Female 11/10/2023 3:12 AM CHAINSTITCH FELLED SEAM OPERATOR Gender Identity Female 11/10/2023 3:12 AM CHAINSTITCH FELLED SEAM OPERATOR Sexual Orientation Not on file Last Filed Vital Signs Vital Sign Reading Time Taken Comments Blood Pressure - - Pulse - - Temperature - - Respiratory Rate - - Oxygen Saturation - - Inhaled Oxygen Concentration - - Weight 56.7 kg (125 lb) 11/10/2023 4:30 AM CHAINSTITCH FELLED SEAM OPERATOR Height 154.9 cm (5' 1) 11/10/2023 4:30 AM CHAINSTITCH FELLED SEAM OPERATOR Body Mass Index 23.62 11/10/2023 4:30 AM CHAINSTITCH FELLED SEAM OPERATOR Plan of Treatment Health Maintenance Due Date [...] - 2 023-24 season) 2023 Influenza Immunization (#1) 2024 06/12/2012 Tetanus (Tdap or Td) Immunization 10/01/2030 10/01/2020, 02/20/2017, 09/04/2011, Additional history exists Hepatitis B Immunization Completed 993, 1992, 1992 HIB Immunization Completed 08/25/1993, , 1992, Additional history exists Polio Immunization Completed 05/30/1996, 0 12/05/1993, 1992, Additional history exists HPV Immunization Completed 02/20/2008, 07/2008, 08/15/2007 Varicella Immunization Completed 02/20/2008, 1994 Hepatitis A Immunization Completed 08/05/2010, 11/16 Care Teams Calculating Machine Mechanic Relationship Specialty Start Date End Date Fitzloff[address] [place] [address] PCP - General Family Medicine 11/29/23
--- OUTSIDE RECORDS SUMMARY | 2024-05-13 09:14 | XMS_ITS | Clinical Summary ---
Author Organization [facility] Address [address] [place] [id number] Care Team Providers Care Mold Worker Name Role Phone Clinic, [facility] [place] Primary [...] (once per calendar year) 2023 INFLUENZA VACCINE (#1) 2024 9, 07/19/2017, 08/05/2013, Additional history exists DTAP/TDAP/TD IMMUNIZATION [...] on patient's age to complete this topic Care Teams Mold Worker Relationship Specialty Start Date End Date [facility], [facility] [place] [address] [facility] [place] [id number] PCP - General 03/14/23
--- OUTSIDE RECORDS SUMMARY | 2024-05-13 09:14 | XMS_ITS | Encounter Summary ---
Author Organization [facility] Address [address] [place] [address]. [place] [address] Care Team Providers Care Bookkeeping Service Sales Agent Name Role Phone Clinic, [facility] Primary Care Provide r Reason for Visit * Reason Comments Rectal Bleeding Encounter Details Date Type Department Care Team (Late st Contact Info) Description 02/11/2024 2:33 PM CDT - 02/11/2024 8:05 PM CDT Emergency [facility] Emergency Dept [address] [place] [address] Ezra Smart MD [address], [address] [address] Anal fissure; External hemorrhoids Discharge Disposition: Home [...] sent through Care Everywhere. * Anal Fissure (Puerto Rican) * Hemorrhoids (Puerto Rican) documented in this encounter Medications at Time [...] A&Ox4. Triage Assessment (Adult) Row Name 02/11/24 1300 Triage Assessment Airway WDL WDL Respiratory WDL [...] 500 mL (65 mLs Intravenous $Given 02/11/24 3478) CT scan flush (62 mLs Intravenous $Given 02/11/24 6024) Independent Interpretation (X-rays, CTs, rhythm strip): None Assessments/Consultations/Discussion of Management or Tests: ED Course as of 02/11/242233Feb 11, 2024 153 I obtained history and examined the patient as noted above. 1950 Reevaluation Social Determinants of Health affecting care: None Disposition: The patient was discharged. Impression & Plan [facility] Diagnoses: None Medical Decision Makin-year-old female presents [...] a ED exam room with a nurse maths tutor. There is an anal fissure and small [...] LAB - BLOOD ORDERABL ES [facility] LAB[facility]ATORY [facility] [address] [facility] ([facility]st [facility], no room number) [place] [address], [facility] * CTA Abdomen Pelvis with Contrast (02/11/2024 6:00 PM CDT) Anatomical Region Laterality Modality Abdomen/Pelvis, SUBRAD IR NV OCEDURE, UMP CT CTA, RAD CT Computed Tomography 02/11/2024 6:00 PM CDT Impressions 02/11/2024 6:34 PM CDT IMPRESSION: 1. ??No evidence of active GI bleeding. No acute abdominal or pelvic findings to correlate with clinical symptoms. Narrative 02/11/2024 6:34 PM CDT EXAM: CTA ABDOMEN PELVIS WITH CONTRAST LOCATION: [facility] DATE: 02/11/2024 INDICATION: Hematochezia COMPARISON: None. TECHNIQUE: CT angiogram abdomen pelvis during arterial phase of injection of IV contrast. 2D and 3D MIP reconstructions were performed by the ct technologist. Dose reduction techniques were used. CONTRAST: [...] EXAM: CTA ABDOMEN PELVIS WITH CONTRAST LOCATION: [facility] DATE: 02/11/2024 INDICATION: Hematochezia COMPARISON: None. TECHNIQUE: [...] pelvic masses. No significant fluid within the [id number]. Normal appearance of the ovaries. MUSCULOSKELETAL: Normal. IMPRESSION: 1. No evidence of active GI bleeding. No acute abdominal or pelvicfindings to correlate with clinical symptoms. Ezra Smart MD IMG CT ORDERABLES * HCG qualitative Blood (02/11/2024 3:58 PM CDT) [facility] hCG Serum Qualitative Negative Negative SERENA 02/11/2024 4:55 PM CDT RH LABORATORY Comment:This test is for scr eening purposes. Results should be interpreted along with the clinical picture. Confirmation testing is available if warranted by ordering [id number], HCG Quantitative . Blood BLOOD SPECIMEN / Unknown Venipuncture / Unknown 02/11/2024 3:58 PM CDT 02/11/2024 4:04 PM CDT Ezra Smart MD LAB - BLOOD ORDERABL ES Performing Organization Address City/[facility]/ZIP Co de Phone Number [facility] Care Lab [address] Lab (1st floor, no room number) [address] * Magnesium (02/11/2024 1:20 PM CDT) [facility] Magnesium 1.9 1.7 - 2.3 mg/dL 02/11/2024 4:05 PM CDT LABORATORY Blood STRUCTURE OF LEFT UPPER LIMB / Unknown Venipuncture / Unknown 02/11/2024 1:20 PM CDT 02/11/2024 1:25 PM CDT Ezra Smart MD LAB - BLOOD ORDERABL ES [facility] Acute Care Lab [address] Lab (1st floor, no room number) [place] [id number] * Lipase (02/11/2024 1:20 PM CDT) [facility] Lipase 47 13 - 60 U/L 02/11/2024 4:05 PM CDT RH LABORATORY Blood STRUCTURE OF LEFT UPPER LIMB / Unknown Venipuncture / Unknown 02/11/2024 1:20 PM CDT 02/11/2024 1:25 PM CDT Ezra Smart MD LAB - BLOOD ORDERABL ES RH LABORATORY [facility] Acute Care Lab [address] Lab (1st floor, no room number) [place] [address] * Hepatic function panel (02/11/2024 1:20 [...] LAB - BLOOD ORDERABL ES RH LABORATORY [facility] Acute Care Lab [address] Lab (1st floor, no room number) [place] [address] * (ABNORMAL) CBC with platelets and differential [...] MD LAB - BLOOD ORDERABL ES LABORATORY [facility] Acute Care Lab [address] [facility] Lab (1st floor, no room number) [place] [address] * (ABNORMAL) Basic metabolic panel (BMP) (02/11/2024 1:20 PM CDT) [facility] Sodium 136 135 - 145 mmol/L [...] MD LAB - BLOOD ORDERABL ES LABORATORY [facility] Acute Care Lab [address] [facility] Lab (1st floor, no room number) [place] [address], [facility] documented in this encounter Visit Diagnoses Diagnosis [...] Henderson) documented in this encounter Care Teams Bookkeeping Service Sales Agent Relationship Specialty Start Date End Date Clinic, [facility] [address] [place] [address] PCP - General 03/14/23 documented as of this encounter
--- OUTSIDE RECORDS SUMMARY | 2024-05-13 09:14 | XMS_ITS | Clinical Summary ---
Author Organization [facility] Address [address] [place] [address] Care Team Providers Care Group Social Worker Name Role Phone Giuseppe Larson PA-C Primary Care Provider [phone] Source Comments You are receiving this document as you are listed as the primary care provider,follow-up provider, or the patient has been referred to you for consultation.This is in compliance with the Medicare andOhiohealth Shelby Hospitalcaid EHR Incentive Program,which states Providers who transition their patient to another setting of careor provider of care or refers their patient to another provider of care shouldprovide summary care record for each transition of care or referral. [facility] Allergies Active Allergy Reactions Criticality Noted Date [...] mild 06/12/2012 Overview: Depression, major, recurrent, mild ([facility]) Last Assessment & Plan: PHQ-9 score [...] 3,1992, 992 Influenza IIV4 (Quadrivalent ) 0.5mL (51941) 08/11/2019,07/19/2017,08/05/2013 Influenza LAIV (Nasal, 2-49 yrs) 06/12/2012 [...] Comments Blood Pressure 124/78 09/16/2022 2:52 PM PRESETTER OPERATOR Pulse 66 09/16/2022 2:52 PM PRESETTER OPERATOR Temperature 36.9 ??C (98.5 ??F) 09/16/2022 2:52 PM CS T Respiratory Rate 16 09/16/2022 2:52 PM PRESETTER OPERATOR Oxygen Saturation 100% 09/16/2022 2:52 PM PRESETTER OPERATOR Inhaled Oxygen Concentration - - Weight 74.8 [...] COVID-19 Vaccine ( season) 2023 Influenza (#1) 2024 08/11/2019, 02/2017, 08/05/2013, Additional history exists DTaP/Tdap/Td [...] CDT FINAL GYNECOLOGICAL CYTOLOGY REPORT Pathology #: [id number] ?Date Obtained: 04/22/2014 ? Date Received: 04/23/2014 [...] End of Report Giuseppe Larson PA-C LAB_1 HP CONVERSION * HIV ANTIBODY (04/22/2014 10:11 AM CDT) HIV 1/HIV 2 Non-React Non-Reacti ve HP CONVERSION 04/22/2014 10:1 1 AM CDT 04/22/2014 3:38 PM CDT Giuseppe Larson PA-C LAB_1 Performing Organization Address [facility] de Phone Number HP CONVERSION * Hepatitis C Antibody, with Reflex (04/22/2014 10:11 AM CDT) Hepatitis C Antibody Non-React Non-Reacti ve HP CONVERSION 04/22/2014 10:1 1 AM CDT 04/22/2014 3:38 PM CDT Giuseppe Larson PA-C LAB_1 Performing Organization Address [facility] de Phone Number HP CONVERSION from Last 3 Months or Most Recently Relevant to Health Maintenance Care Teams Group Social Worker Relationship Specialty Start Date End Date Giuseppe Larson PA-C [address], [place] [address] PCP - General 01/16/11
--- OUTSIDE RECORDS SUMMARY | 2024-05-13 09:14 | XMS_ITS | Encounter Summary ---
Author Organization [facility] Address [address] [place] [address] Care Team Providers Care Dope And Fabric Worker Name Role Phone Giuseppe Larson PA-C Primary Care Provider Reason for Visit * Reason Comments Blood In Stool Encounter Details Date Type Department Care Team (Late st Contact Info) Description 02/11/2024 Nurse Triage [facility] [address] [facility] [place] [phone] Giuseppe Larson PA-C [address] [place] [phone] Blood In Stool Social History Tobacco Use [...] on and off bleeding) Protocols used: Rectal [id number] documented in this encounter Plan of Treatment Not on file documented as of this encounter Visit Diagnoses Not on filedocumented in this encounter Care Teams Dope And Fabric Worker Relationship Specialty Start Date End Date Giuseppe Larson PA-C [address] [place] [address] PCP - General 01/16/11 documented as of this encounter
[2024-05-13] MEDS: LACTATED RINGERS 1000 ML 1,000 ML 100 ML IV ×2 (09:30→12:02)
[2024-05-13] MEDS: SODIUM CHLORIDE 0.9 % (FLUSH) 10 ML SYRINGE IVF (09:30)
[2024-05-13 09:31] LABS: Ur HCG Qualitative* Negative (Negative)
[2024-05-13 09:53] LABS: Hemoglobin* 10.9 gm/dL (12.0-16.0)
[2024-05-13] MEDS: CEFAZOLIN 2 GM INJ IVP (11:14)
[2024-05-13] MEDS: BUPIVACAINE 0.5% 30 ML INJECTION (11:45)
--- NOTE | 2024-05-13 12:04 | W.PM.NB ---
Nerve Block Nerve Block Time Seen by Provider: 11:10 Date Seen: 05/13/24 Type of block requested by surgeon for post-operative analgesia: TAP Side: bilateral Time out performed: Yes Verification of patient name: Yes Verification of date of : Yes Site marking: site marked Name of person performing procedure: Demario Continuous monitoring Was continuous monitoring of O2 sat, B/P, cardiac rehab nurse, recorded every 15 minutes?: Yes Procedure Checklist: sterile prep, needles and gloves Ultrasound guided. Images saved: Yes Medications given in 5ml increments after negative aspiration: Marcaine %: 0.25 mL: 30 Needle gauge: 20 and Exparel mL: 10 Patient tolerated procedure well: Yes Additional comments: Needle noted between internal oblique and transversus abdominus. Local spread visualized Block Charges Block Charge (with Pro Fee): TAP Bilateral Use of Ultrasound Machine for Block: Yes- US Guidance/pain block
--- NOTE | 2024-05-13 12:05 | W.ANESCHARGE ---
Anesthesia Charges Start Date/Time Anesthesia Start Date: 05/13/24 Anesthesia Start Time: 11:01 Stop Date/Time Anesthesia Stop Date: 05/13/24 Anesthesia Stop Time: 13:59
--- NOTE | 2024-05-13 13:34 | W.PM.GYNPROC ---
Procedure Note Date of procedure: 05/13/24 Will [facility] bill your pro fee for this procedure?: Yes Procedure Description: PREOPERATIVE DIAGNOSIS: Chronic pelvic pain, history of female sterilization POSTOPERATIVE DIAGNOSIS: Same PROCEDURE: Total laparoscopic hysterectomy. Right salpingo oophorectomy. Left salpingectomy. Diagnostic cystoscopy. SURGEON: Kathryn. BRAIDED BAND ASSEMBLER: Daren. ANESTHESIA: General endotracheal. COMPLICATIONS: None ESTIMATED BLOOD LOSS: See operative report by Dr. Peralta. FINDINGS: Omental adhesion to the anterior abdominal wall near the umbilicus. Normal-appearing uterus, ovaries, and distal fallopian tubes. Evidence of prior tubal ligation. Prominent uterine vasculature suggestive of pelvic congestion syndrome. PROCEDURE NOTE: Please see the operative report by Dr. Peralta for full details of the procedure. I was asked to assist. I was scrubbed in for the entire procedure until closure of the abdominal incisions. I provided assistance with laparoscopic port placement, lysis of omental adhesions, visualization and retraction, and with the hysterectomy, LSO and right salpingectomy from the patient's right side, as well as with hemostasis and closure of the vaginal cuff.
--- NOTE | 2024-05-13 14:00 | P.PCN_ITS ---
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 Anesthesia: General endotracheal, local Surgeon: Carmen Peralta MD Assist: Paulette Mercedes MD Estimated blood loss: 150 mL. IV Fluid: 1800 mL Urine output: 300 mL Drains: Pinzon to gravity Specimen: Uterus, right ovary and bilateral fallopian tubes to pathology. Findings: On exam under anesthesia: The uterus was mid position, approximately 8 week size, mobile without nodularity or masses palpable. Adnexa without mass or fullness palpable. On laparoscopy: Uterus bilateral fallopian tubes and ovaries appeared normal. 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 Appendix, liver and gallbladder all appeared normal. Procedure: Raza was taken to the operating room where general anesthetic was found to be adequate. She was placed in the dorsal lithotomy position and an exam under anesthesia was performed with findings stated above. She was then prepped and draped in a normal sterile manner. A Pinzon catheter was placed. A bivalve speculum was placed in the vaginal canal. A long Allis clamp was placed on the anterior lip of the cervix, in the uterus sounded to 9 cm. A large VCare uterine manipulator was then placed. The Allis clamp and speculum were removed from the cervix. Attention was then turned to performing the laparoscopic portion of the procedure. All incisions were infiltrated with 0.50% Marcaine prior to incising the skin. A vertical, infraumbilical 1 cm incision was made. An 11 mm trocar was then placed under direct visualization. The abdomen was then insufflated with CO2 gas to a pressure of 15 mm of mercury. Two,, pelvic ports were then placed approximately 3-4 finger breaths medial to the ischial crests. The trocar in the RLQ = 5mm, LLQ = 11mm. These were placed under direct visualization. Attention was then turned to performing the hysterectomy. Both ureters were visualized in the normal position bilaterally. The left fallopian tube was grasped and removed with sequential pedicles using the dissecting, PowerSeal blunt tip dissecting forceps. The left side of the hysterectomy was performed using the LigaSure [place] forceps. The 1st pedicles were starting with the broad ligament that was cauterized and and bisected. In sequence show pedicles were formed to divide the utero-ovarian ligament. Then sequential pedicles were made through the broad ligament. The posterior leaf of the broad ligament was then divided and sequential pedicles carried down to the level of the VCare cup. The anterior leaf of the broad ligament was then divided down to the level of the anterior aspect of the VCare cup and a bladder flap created. The uterine vessels were then skeletonized. The uterine vessels were then cauterized and divided. Then excess tissue was cleared over the top of the VCare cup using the dissecting forceps. The right salpingectomy and right side of the hysterectomy were then performed in a similar manner. After the right salpingectomy the ovary was removed from the infundibulopelvic ligament using the LigaSure [place] forceps with excellent visualization of the ureter inferior to the area of dissection. The right ovary then remained attached to the uterus to the utero-ovarian ligament and was removed from the pelvis with the uterus. The Ligasure Valleylab pen with the spatula attachment was then used to perform the colpotomy incising around the VCare cup. The uterus was removed and the fundus placed in the vaginal canal to maintain insufflation. The vaginal cuff was then reapproximated using 2-0 V lock suture in a running manner. All the pedicles and vaginal cuff were then closely visualized and hemostasis obtained with bipolar cautery using the PowerSeal dissecting forceps or the Valleylab pen with the spatula. The the uterus was removed from the vaginal canal and sent to pathology. The Pinzon catheter was briefly removed. A diagnostic cystoscopy was performed using normal saline as the insufflation medium. The dome of the bladder was noted to be without injury and no evidence of any sutures from the vaginal cuff causing injury. Normal urine flow was noted through both ureteral orifices. Fluorescein IV was used to visualize the urine more easily. The Pinzon catheter was then replaced. Attention was then returned to the abdomen where hemostasis was verified. Ariela was applied to the vaginal cuff. The CO2 pressure decreased to 8mmHG and hemostasis verified. The fascia in the LLQ incision was approximated with 0- Vicryl suture using the Randolph Thomasen fascial closure device. This was closed under direct visualization with the laparoscope. The fascia in the umbilical incision was reapproximated using 0 Vicryl on a UR 6 needle. All trocars were removed under direct visualization. CO2 gas was allowed to escape the infraumbilical port prior to its removal. All skin incisions were re- approximated using 4-0 Monocryl in a running subcuticular manner, Exofin skin adhesive gel was then applied. The patient tolerated this procedure well. Sponge, lap and instrument counts were correct x2 at the end of the procedure and the patient was taken to the recovery area in stable condition. The patient received 2 gm IV ancef prior to the start of the procedure. Anesthesia: GETA Estimated blood loss (mL): 150 IV fluids (mL): 1,800 Urine output (mL): 300 Pathology: specimen obtained, sent to pathology Condition: stable Disposition: floor
--- NOTE | 2024-05-13 14:02 | W.ANESCHARGE ---
Anesthesia Charges Start Date/Time Anesthesia Start Date: 05/13/24 Anesthesia Start Time: 11:01 Stop Date/Time Anesthesia Stop Date: 05/13/24 Anesthesia Stop Time: 13:59
[2024-05-13] MEDS: SIMETHICONE 80 MG TAB.CHEW 160 MG PO ×2 (15:19→20:12)
[2024-05-13] MEDS: OXYCODONE 5 MG TABLET PO ×2 (16:06→20:12)
--- NOTE | 2024-05-13 19:19 | PC.NURSE ---
End of shift note ([id number]): Pt A&Ox3, pleasant, and cooperative. Steri strips (3) CDI, ice pack is in place. No vaginal bleeding. Pt is rating her pain 8-10/10 from the CO2 pressure radiating to her shoulders. Gave patient warming blankets and aqua-K pad. PRN pain medication was also given. VSS. Pt was up with an assist to the bathroom. Pinzon is patent and draining. Pt has call light within reach.
[2024-05-13] MEDS: KETOROLAC 30 MG/ML inj IVP (20:12)
[2024-05-14] MEDS: OXYCODONE 5 MG TABLET PO ×2 (00:34→06:49)
[2024-05-14] MEDS: SIMETHICONE 80 MG TAB.CHEW 160 MG PO ×2 (00:34→09:34)
[2024-05-14] MEDS: KETOROLAC 30 MG/ML inj IVP (02:01)
[2024-05-14 03:15] VITALS: BP 111/61; PULSE 74; RESP 18; TEMP 36.6; O2SAT 98
[2024-05-14] MEDS: IBUPROFEN 600 MG TABLET PO (06:29)
[2024-05-14] MEDS: LEVOTHYROXINE 75 MCG TABLET PO (06:29)
[2024-05-14 06:30] LABS: Hemoglobin* 10.3 gm/dL (12.0-16.0)
[2024-05-14 07:00] VITALS: BP 102/61; PULSE 51; RESP 14; TEMP 36.6; O2SAT 98
--- NOTE | 2024-05-14 07:06 | PC.NURSE ---
End of shift [id number]: A&O pleasant and cooperative. VSS. Pt reporting shoulder pain upon initial assessment. Package Yarns Drying Machine Operator encouraged movement. Pt ambulated in room w/ SBA. Tolerated well. Pt reporting 7-9/10 abdominal pain at sight of incision. See eMAR for interventions. Pt sleeping upon reassessments. Tolerating diet. Lap sites c/d/i. Scant bloody drainage from vagina. Pt reports passing gas. Pinzon removed this morning.
--- NOTE | 2024-05-14 09:24 | PM.GYNDS1 ---
DS: Providers Provider Time Seen by Provider: 08:30 Date Seen: 05/14/24 Date of admission: 05/13/2024 Primary care physician: Rosa Kearns PA-C Admitting Clinician: Dr. Peralta Attending Physician on discharge: Paulette Mercedes MD Date of Discharge: 05/14/24 DS: Diagnosis Discharge Diagnosis (1) Status post laparoscopic hysterectomy: Status: Acute Problem details: Total laparoscopic hysterectomy, right salpingo-oophorectomy, left salpingectomy, and diagnostic cystoscopy for pelvic pain LOOM OPERATOR APPRENTICE-Discharge Summary Hospital Course Hospital Course Narrative: Patient is a 33 year old admitted on 05/13/24 for total laparoscopic hysterectomy, right salpingo oophorectomy, left salpingectomy, and diagnostic cystoscopy. Indication for surgery: Chronic pelvic pain. Intraoperative findings were notable for: The uterus was mid position, approximately 8 week size, mobile without nodularity or masses palpable. Adnexa without mass or fullness palpable. On laparoscopy: Uterus bilateral fallopian tubes and ovaries appeared normal. 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 Appendix, liver and gallbladder all appeared normal. She had an uncomplicated surgery. Postoperative course has been uneventful. Vitals have been stable. She has remained afebrile. Today, on postoperative day 1, she reports the pain is well controlled. She has been able to ambulate Without difficulty. She is tolerating regular diet. She is passing flatus. Pinzon catheter has been removed, and she is voiding without difficulty. Time Spent with Patient Time attestation: Total time spent providing and/or coordinating discharge services: Time spent: Less than 30 minutes LOOM OPERATOR APPRENTICE - Exam Physical Exam: Vital signs: Temp Pulse Resp BP Pulse Ox O2 Del Method 97.8 F 51 L 14 102/61 98 Room Air 05/14/24 07:00 05/14/24 07:00 05/14/24 07:00 05/14/24 07:00 05/14/24 07:00 05/14/24 07:00 Constitutional: Constitutional: no acute distress Routine HEENT Exam: Head: Present normal inspection Routine Neck Exam: NECK: Present supple Routine Respiratory Exam: Respiratory: Present CTA bilaterally; Absent crackles, rhonchi or wheezes Routine Cardiovascular Exam: Cardiovascular: Present RRR; Absent murmur Routine Abdominal Exam: Abdominal: Present normal bowel sounds and soft; Absent distended or tenderness Comments: Laparoscopic port sites are intact, dry, without erythema, induration, or tenderness. Routine Extremities Exam: Extremities: Present normal inspection; Absent calf tenderness or pedal edema Routine Psychiatric Exam: Psychiatric: Present normal affect LOOM OPERATOR APPRENTICE - DS: Data Data Completed and Pending Labs on day of discharge: Labs from last 24 hours 05/14/24 05/13/24 05/13/24 05:50 Unknown 09:46 Hgb 10.3 L 10.9 L Urine HCG, Qual Negative Blood Type B Positive Antibody Screen NEGATIVE Procedures Procedures: Procedures Operation Date: 05/13/24 10:30 Actual Procedure Side Surgeon p Total Laparoscopic Hysterectomy, Bilateral Salpingectomy, Right Oophorectomy, Diagnostic Cystoscopy Bilateral Carmen Peralta MD Discharge Plan Discharge Disposition: Home w/ Parent or Adult Discharging Surgeon: Paulette Mercedes Follow-Up Appointment: Dr. Peralta, [facility], May 26 @ 10:15 am Prescriptions: New docusate sodium 100 mg Capsule 100 mg PO BID PRN (Reason: Constipation) Qty: 100 0RF ibuprofen 600 mg Tablet 600 mg PO Q6H Qty: 30 0RF oxycodone 5 mg Tablet 5 mg PO 3XD PRN (Reason: Moderate Pain) Qty: 21 0RF Continued citalopram 40 mg tablet 40 mg PO DAILY Qty: 90 3RF levothyroxine 75 mcg tablet 75 mcg PO QDAY Qty: 90 3RF ferrous sulfate 325 mg (65 mg iron) tablet 325 mg PO Q OTHER DAY albuterol sulfate [Ventolin HFA] 90 mcg/actuation HFA aerosol inhaler 2 puff inhalation Q4-6H PRN (Reason: shortness of breath or wheezing) Qty: 6.7 1RF Activity Level: Activity as Tolerated Discharge Diet: Regular Patient Instructions: Laparoscopic Hysterectomy (DC) Additional Instructions: ACTIVITY RESTRICTIONS: Nothing vaginally for 6 weeks: no tampons/intercourse No driving while taking narcotic pain medication during the day. 1-2 weeks. Lifting restriction: Maximum of 20 pounds for 4 weeks. High impact or core exercises: 4 weeks. Submerge the incisions in water (bath/pool/tolliver): 2 weeks. Off of work/school for a minimum of 4 weeks NO RESTRICTIONS for: Walking Going up/down stairs Showering Being the passenger in a motor vehicle. Symptoms to report to your doctor Bleeding that is red, like a moderate period Passing clots larger than the size of a golf ball Pain not relieved by prescribed medication Fever above 100.4 degrees Fahrenheit A foul vaginal odor Decrease in urination or painful, frequent urinating Chest pain Shortness of breath Tenderness or pain with redness and/swelling in the calf(s) of your leg Follow-up Appointments: 1. [facility] 2-3 weeks for an incision check. 2. A 6 week postop visit to verify that the vaginal cuff is well-healed. Follow-up: Carmen Peralta MD [Staff Physician] - 05/26/24 10:15 am Rosa Kearns PA-C [Primary Care Provider] - Discharge Orders: Discharge Order (Routine); Ordered 05/14/24 Ordered By: Paulette Mercedes
[2024-05-14] MEDS: ACETAMINOPHEN 325 MG TABLET 650 MG PO (09:34)
== END 2024-05-14 11:47 | disposition home or self-care (01) ==
LOC: OR 09:12 → MEDSURG 09:14
PROVIDERS: Nurse Anesthetist, Certified Registered; PCP Physician Assistant; Visit Provider Obstetrics & Gynecology
PROC: 0UT94ZZ Resection of Uterus, Percutaneous Endoscopic Approach (ICD-10-PCS; CPT 58571; principal; 2024-05-13 10:30)
DX: R10.2 Pelvic and perineal pain (principal); N94.6 Dysmenorrhea, unspecified; G89.29 Other chronic pain; N94.89 Other specified conditions associated with female genital organs and menstrual cycle; G89.18 Other acute postprocedural pain; E03.9 Hypothyroidism, unspecified; J45.909 Unspecified asthma, uncomplicated
CPT/HCPCS: 58571; 00840; 36415; 64488; 76942; 81025; 85018; 86850; 86900; 86901; 88307; A9270; C9290; J0665; J0690; J1100; J1170; J1885; J2250; J2405; J2704; J2710; J3010; J7120

== ENCOUNTER 2024-05-28 06:43 | Day surgery (SDC) | payer OTHER, SELFPAY ==
[2024-05-28] VITALS (10 sets, daily range): BP systolic 106–118; BP diastolic 57–70; PULSE 53–66; RESP 14–20; TEMP 36.5–36.7; O2SAT 98–100; BMI 25.9
--- OUTSIDE RECORDS SUMMARY | 2024-05-28 06:46 | XMS_ITS | Clinical Summary ---
Author Organization [facility] Address [address] [place] [id number] Phone [email or web address] Care Team Providers Care Meeting Planner Name Role Phone [email or web address] Primary Care Provider [phone] Allergies Active Allergy Reactions Criticality Noted Date [...] Sex Assigned at Female 11/10/2023 3:12 AM GOLF BALL COVER TREATER Gender Identity Female 11/10/2023 3:12 AM GOLF BALL COVER TREATER Sexual Orientation Not on file Last Filed Vital Signs Vital Sign Reading Time Taken Comments Blood Pressure - - Pulse - - Temperature - - Respiratory Rate - - Oxygen Saturation - - Inhaled Oxygen Concentration - - Weight 56.7 kg (125 lb) 11/10/2023 4:30 AM GOLF BALL COVER TREATER Height 154.9 cm (5' 1) 11/10/2023 4:30 AM GOLF BALL COVER TREATER Body Mass Index 23.62 11/10/2023 4:30 AM GOLF BALL COVER TREATER Plan of Treatment Health Maintenance Due Date [...] A Immunization Completed 08/05/2010, 11/16 Care Teams Meeting Planner Relationship Specialty Start Date End Date FitzloffJanuary [address] [place] [address] PCP - General Family Medicine 11/29/23
--- OUTSIDE RECORDS SUMMARY | 2024-05-28 06:46 | XMS_ITS | Clinical Summary ---
Author Organization [facility] Address [address] [place] [address] Care Team Providers Care Bobbin Cleaner Name Role Phone Giuseppe Larson PA-C Primary Care Provider [phone] Source Comments You are receiving this document as you are listed as the primary care provider,follow-up provider, or the patient has been referred to you for consultation.This is in compliance with the Medicare and[facility] EHR Incentive Program,which states Providers who transition their patient to another setting of careor provider of care or refers their patient to another provider of care shouldprovide summary care record for each transition of care or referral. [facility] Allergies Active Allergy Reactions Criticality Noted Date [...] asthma without complication Seasonal allergic rhinitis 04/09/2015 Overview (05/18/2016): spring/fall RICHARD (generalized anxiety disorder) 02/09/2015 Positive ALICIA (antinuclear antibody) 05/14/2013 Abnormal thyroid blood test 05/14/2013 Depression, major, recurrent, mild 06/12/2012 Overview (06/06/2017): Depression, major, recurrent, mild (HCC) Assessment & Plan (04/22/2014 10:04 AM CDT): PHQ-9 score of 6, RICHARD-7 score of [...] increasing the bupropion dose at this point. Assessment & Plan (01/20/2014 11:32 AM CDT): PHQ-9 score of 11 (was 9 on 12/18/13), RICHARD-7 score of 6 (was 13 on 12/18/13). Denies suicidal ideation/intention/plan. Reports a good social support system. On 12/18/13, citalopram was increased from 20 mg to 40 mg daily. She had also restarted Concerta 54 mg daily, which she had stopped due to feeling increasingly irritable on the medication. Because her ADD symptoms were really bothering her off of it, we had chosen to restart it, hoping that the increased dose of citalopram would cover the irritability well. Though her ADD has improved with the concerta, her irritability has again increased. Does feel improvement in overall anxiety symptoms, still feeling pretty stable with her depression symptoms. Assessment & Plan (12/18/2013 9:49 AM CLOTH EDGE SINGER): PHQ-9 score of 9, RICHARD-7 score of 13. Denies suicidal ideation/intention/plan. Reports a good social support system. Currently taking citalopram 20 mg daily. Tolerating it well. Has been on this dosage for a few years now. She has been going through a lot of changes over several months, the biggest of which has been her father moving to [place]. She doesn't see her mother very often, in fact, just saw her the other day for the first time since Tiffanie. She gets along with both of her parents, and her father's move away has been difficult for her. She is also close to her grandmother, her father's mother, and talks to her quite often. She has a boyfriend who treats her very well. He is celebrating 1 year of sobriety today, and has been doing great personally. Raza has gained quite a bit of weight over the winter, and she recognizes that it is likely due to her emotional state, as well as the long winter. She also works a lot, very long hours, and ends up feeling too tired after work to do anything active. She is heavier now than she has ever been, and is really struggling emotionally with her weight and her body image. She is more irritable as of late. Assessment & Plan (08/05/2013 8:35 AM CDT): PHQ-9 score of 1. Denies suicidal ideation/intention/plan. Reports a good social support system. Currently taking citalopram 20 mg daily, and tolerating it well. Assessment & Plan (06/12/2012 4:10 PM CDT): PHQ-9 score of 11, RICHARD-7 score of 12. Denies suicidal ideation/intention/plan. Describes a lack of physically-close support system, but does have her mother who she can talk to regularly by phone. Is also planning to restart therapy for more regular support. She has really been struggling for several months. Having a difficult time with self-esteem, really not liking herself or where she is at in her life. Feeling lonely, yet not motivated to get together in social situations, even when asked. 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 Her parents moved to [place] recently, and her little brother moved to [place], so she is living on her own for the first time. Has some stress with regard to paying bills on time, etc, just because she is not used to it yet. Went through a bad break-up a couple of months ago, which worsened her self- esteem. Denies abuse issues. Feels safe. Wonders if her citalopram needs to be increased from her current dosage of 10 mg daily. Attention deficit disorder 05/26/2009 Overview (05/18/2016): Rubén Irizarrylela diagnosed 03/2009 Assessment & Plan (12/18/2013 9:51 AM CLOTH EDGE SINGER): She stopped her Concerta 54 mg about [...] on Concerta for a few years now. Assessment & Plan (08/05/2013 8:35 AM CDT): Currently taking methylphenidate in the form of Concerta, 54 mg daily. Assessment & Plan (01/28/2013 1:27 PM CDT): Continues to maintain good control of her ADD with Concerta. Denies any issues with remembering to take it in the morning. Feels she has good concentration, focus, and task completion. Denies adverse effects, including unusual weight loss, abdominal pain, headaches, nausea, and heart palpitations/chest pain. No history of abuse or diversion. Assessment & Plan (06/12/2012 4:11 PM CDT): Continues to do very well with Concerta 54 mg daily. When she doesn't take it, she tells me that she drives herself and her co-workers crazy. No adverse effects. No questions or concerns regarding that today. Other acne 12/11/2007 Overview (06/06/2017): Acne Vulgaris Dysmenorrhea 08/15/2007 Irregular menstrual cycle 08/15/2007 Overview (06/06/2017): Menstrual Irregularity NOS Immunizations Name Administration Dates Next Due 4vHPV (Gardasil) 02/20/2008,10/24/2007, 7 DTP 05/30/1996, 4,1992, 992,1992 Flu Vac Preserv Free (3+yrs) 09/04/2011, 08/05/2010,06/30/2009, 007 HepA Ped/Adol (1-18 yrs) 08/05/2010,12/09/2008 HepB Ped/Adol (0-18 yrs) 02/23/1993,1992,0 1992 Hib (ActHIB) 08/25/1993, 3,1992, 992 Influenza IIV4 (Quadrivalent ) 0.5mL (10406) 08/11/2019,07/19/2017,08/05/2013 Influenza LAIV (Nasal, 2-49 yrs) 06/12/2012 [...] Comments Blood Pressure 124/78 09/16/2022 2:52 PM CLOTH EDGE SINGER Pulse 66 09/16/2022 2:52 PM CLOTH EDGE SINGER Temperature 36.9 ??C (98.5 ??F) 09/16/2022 2:52 PM CS T Respiratory Rate 16 09/16/2022 2:52 PM CLOTH EDGE SINGER Oxygen Saturation 100% 09/16/2022 2:52 PM CLOTH EDGE SINGER Inhaled Oxygen Concentration - - Weight 74.8 kg (165 lb) 01/02/2021 12:44 PM CDT Height 154.9 cm (5' 1) 04/26/2020 3:26 PM CDT Body Mass Index 31.18 04/26/2020 3:26 PM CDT Plan of Treatment Health Maintenance Due Date Last Done Comments Asthma ACT 1996 Pneumococcal (1 - PCV) 1998 Adult Preventive Visit 2010 Cervical Cancer Screening Due 04/23/2014 04/22/2014, 01/28/2013, 12/09/2008 COVID-19 Vaccine (2022- season) 2023 Influenza (#1) 2024 08/11/2019, 1002/2017, 08/05/2013, Additional history exists DTaP/Tdap/Td (9 - [...] CDT FINAL GYNECOLOGICAL CYTOLOGY REPORT Pathology #: [id number] ?Date Obtained: 04/22/2014 ? Date Received: 04/23/2014 [...] Giuseppe Larson PA-C LAB_1 Performing Organization Address [facility] de Phone Number HP CONVERSION * HIV ANTIBODY (04/22/2014 10:11 AM CDT) HIV 1/HIV 2 Non-React Non-Reacti ve HP CONVERSION 04/22/2014 10:1 1 AM CDT 04/22/2014 3:38 PM CDT Giuseppe CHAPIN-Edmond LAB_1 Performing Organization Address [facility] de Phone Number HP CONVERSION * Hepatitis C Antibody, with Reflex (04/22/2014 10:11 AM CDT) Hepatitis C Antibody Non-React Non-Reacti ve HP CONVERSION 04/22/2014 10:1 1 AM CDT 04/22/2014 3:38 PM CDT Giuseppe CHAPIN-Edmond LAB_1 Performing Organization Address [facility] de Phone Number HP CONVERSION from Last 3 Months or Most Recently Relevant to Health Maintenance Care Teams Bobbin Cleaner Relationship Specialty Start Date End Date Giuseppe Larson PA-C [address] [phone] PCP - General 01/16/11
--- OUTSIDE RECORDS SUMMARY | 2024-05-28 06:46 | XMS_ITS | Referral Summary ---
Author Organization [facility] Address [address] [place] [address] Care Team Providers Care Sales Commissions Analyst Name Role Phone [facility] Primary [...] of Treatment Not on file Care Teams Sales Commissions Analyst Relationship Specialty Start Date End Date [facility] [address] [place], [place] [phone] PCP - General 03/14/23
--- OUTSIDE RECORDS SUMMARY | 2024-05-28 06:46 | XMS_ITS | Clinical Summary ---
Author Organization [facility] Address [address] [place] [address] Care Team Providers Care Receiving Dock Checker Name Role Phone Clinic, [facility] Primary [...] age to complete this topic Care Teams Receiving Dock Checker Relationship Specialty Start Date End Date [facility], [facility] [address] [facility] JANELLE Horton [phone] PCP - General 03/14/23
[2024-05-28] MEDS: BUPIVACAINE 0.5 %/EPI 1:200K INJECTION (07:03)
[2024-05-28] MEDS: LIDOCAINE 1% MDV INJECTION (07:03)
--- NOTE | 2024-05-28 07:15 | W.PM.H&PU ---
History & Physical Update History & Physical Update H&P Reviewed and patient assessed: No changes noted
--- NOTE | 2024-05-28 07:15 | PM.ORPRC ---
Procedure Note Date of procedure: 05/28/24 Procedure: PREOPERATIVE DIAGNOSIS: 1. Right carpal tunnel syndrome POSTOPERATIVE DIAGNOSIS: 1. Right carpal tunnel syndrome PROCEDURE: 1. Right open carpal tunnel release SURGEON: Bulmaro Camarena MD. MECHANICAL MAINTENANCE INSTRUCTOR: Steven Diaz. An executive chef assistant was critical for this case to aid in patient positioning, tissue retraction, limb manipulation/positioning, and closure. ANESTHESIA: Local anesthetic IMPLANTS: None ESTIMATED BLOOD LOSS: 0 mL TOURNIQUET: Not utilized COMPLICATIONS: None evident INDICATIONS: The patient is a pleasant 34-year-old female with history of right hand numbness and tingling. Symptoms were not improving with conservative treatment, and patient elected to proceed with surgical intervention consisting of right carpal tunnel release. Prior to surgery, the risks and benefits of the procedure were discussed with patient, all questions were answered, and informed consent was obtained. DESCRIPTION OF PROCEDURE: Patient was seen preoperatively and operative site was marked. Subcutaneous tissues overlying the right carpal tunnel were injected with a combination of 1% lidocaine and 0.5% bupivacaine with epinephrine. Patient was then brought to the operating room and placed in the supine position on the OR table. A tourniquet was placed on the patient's right arm but was not utilized during the procedure. The right upper extremity was prepped and draped in usual sterile fashion. A surgical time-out was performed confirming patient name, procedure, and location. A skin incision measuring approximately 3-4 cm was made in line with the ring finger extending from the distal wrist flexion crease to Boyce's cardinal line. Blunt dissection was used to dissect through subcutaneous tissues and palmar fascia. Transverse carpal ligament was identified and was sharply incised proximally with care taken to protect the underlying median nerve. The transverse carpal ligament was then sharply divided along its ulnar border using tenotomy scissors and a [place]enai blade with care taken to protect the underlying median nerve. Once the transverse carpal ligament was divided, the antebrachial fascia was released proximally. The wound was then irrigated with normal saline, and the tourniquet was released. Hemostasis was achieved with bipolar electrocautery. The skin incision was closed with 4-0 nylon horizontal mattress sutures, and a sterile dressing was applied. Patient was then transferred to the recovery room in stable condition. POSTOPERATIVE PLAN: 1. Patient will be discharged to home day of surgery. 2. Ice and elevation as needed for pain and swelling. 3. Tylenol and/or ibuprofen as needed for pain. 4. They were given instructions for wound care and finger range of motion exercises. 5. Return to the clinic for follow-up evaluation in 10-14 days for wound check and suture removal.
[2024-05-28] MEDS: BACITRACIN OINTMENT BULK TUBE 1 APPLIC TOPICAL (07:58)
== END 2024-05-28 08:21 | disposition home or self-care (01) ==
PROVIDERS: Visit Provider Orthopaedic Surgery
PROC: (CPT 64721; principal; 2024-05-28 07:30)
DX: G56.01 Carpal tunnel syndrome, right upper limb (principal)
CPT/HCPCS: 64721; J3490

== ENCOUNTER 2024-10-03 07:17 | Day surgery (SDC) | payer OTHER, SELFPAY ==
[2024-10-03 07:27] VITALS: BP 110/57; PULSE 68; RESP 16; TEMP 36.6
--- NOTE | 2024-10-03 07:34 | P.ORPRC_ITS ---
Procedure Note Date of procedure: 10/03/24 Procedure: PREOPERATIVE DIAGNOSIS: 1. Left carpal tunnel syndrome POSTOPERATIVE DIAGNOSIS: 1. Left carpal tunnel syndrome PROCEDURE: 1. Left open carpal tunnel release SURGEON: Bulmaro Camarena MD. KINESIOLOGY INTERNSHIP: Amelie Irizarry P.A.-C. An orthopedic assistant was critical for this case to aid in patient positioning, tissue retraction, limb manipulation/positioning, and closure. ANESTHESIA: Local anesthetic IMPLANTS: None ESTIMATED BLOOD LOSS: 1 mL TOURNIQUET: Not utilized COMPLICATIONS: None INDICATIONS: The patient is a pleasant 35-year-old female with history of left hand numbness and tingling consistent with carpal tunnel syndrome. Symptoms were not improving with conservative treatment, and patient elected to proceed with surgical intervention consisting of left carpal tunnel release. Prior to surgery, the risks and benefits of the procedure were discussed with patient, all questions were answered, and informed consent was obtained. DESCRIPTION OF PROCEDURE: Patient was seen preoperatively and operative site was marked. The subcutaneous tissues overlying the left carpal tunnel were injected with a combination of 1% lidocaine with epinephrine and 0.5% bupivacaine. She was then brought to the operating room and placed in the supine position on the OR table. A tourniquet was placed on the patient's left arm and left upper extremity was prepped and draped in usual sterile fashion. A surgical time-out was performed confirming patient name, procedure, and location. A skin incision measuring approximately 3-4 cm was made in line with the ring finger extending from the distal wrist flexion crease to Boyce's cardinal line. Hemostasis was achieved with bipolar electrocautery. Blunt dissection was used to dissect through subcutaneous tissues and palmar fascia. Transverse carpal ligament was identified and was sharply incised proximally with care taken to protect the underlying median nerve. The transverse carpal ligament was then sharply divided along its ulnar border using tenotomy scissors and a capitan grande band blade with care taken to protect the underlying median nerve. Once the transverse carpal ligament was divided, the antebrachial fascia was released proximally. The wound was then irrigated with normal saline. The skin incision was closed with 4-0 nylon horizontal mattress sutures, and a sterile dressing was applied. Patient was then transferred to the recovery room in stable condition. POSTOPERATIVE PLAN: 1. Patient will be discharged to home day of surgery. 2. Ice and elevation as needed for pain and swelling. 3. Tylenol and/or ibuprofen as needed for pain. Tramadol for breakthrough pain. 4. They were given instructions for wound care and finger range of motion exercises. 5. Return to the clinic for follow-up evaluation in 10-14 days for wound check and suture removal.
--- NOTE | 2024-10-03 07:34 | W.PM.H&PU ---
History & Physical Update History & Physical Update H&P Reviewed and patient assessed: No changes noted
[2024-10-03 07:40] VITALS: BMI 24.5
[2024-10-03] MEDS: ETHYL CHLORIDE 1 APPLICATION 1 APPLIC TOPICAL (07:53)
[2024-10-03] MEDS: LIDOCAINE 1%-EPI 1:100,000 20 ML INFILTRATI (07:54)
[2024-10-03] MEDS: BUPIVACAINE 0.5% 30 ML INJECTION (07:54)
[2024-10-03 08:42] VITALS: BP 121/64; PULSE 60; RESP 16; O2SAT 100
[2024-10-03 08:48] VITALS: BP 128/64; PULSE 57; RESP 16; O2SAT 100
[2024-10-03 09:01] VITALS: BP 120/67; PULSE 58; RESP 16; O2SAT 100
[2024-10-03 09:08] VITALS: BP 125/71; PULSE 62; RESP 16; O2SAT 100
[2024-10-03 09:25] VITALS: BP 116/74; PULSE 59; RESP 16; O2SAT 97
--- NOTE | 2024-10-03 09:33 | SUR.PHASEII ---
Patient verbalized understanding of discharge instructions and readiness to be discharged. Patient removed jewelry in pre-op and verified presence of jewelry prior to leaving phase II.
== END 2024-10-03 09:30 | disposition home or self-care (01) ==
PROVIDERS: Visit Provider Orthopaedic Surgery
PROC: (CPT 64721; principal; 2024-10-03 08:30)
DX: G56.02 Carpal tunnel syndrome, left upper limb (principal)
CPT/HCPCS: 64721; J0665